=== PATIENT | male | born 1945 | race Caucasian/White ===

== ENCOUNTER 2017-05-27 08:48 | Inpatient (IN) | payer MEDICARE, OTHER ==
[2017-05-27] MEDS ORDERED: Albuterol/Ipratropium 3.0-0.5 MG/3 ML Neb Soln NEB ONE ×2 (09:18→09:49)
[2017-05-27] MEDS ORDERED: methylPREDNISolone Sodium Succinate 125 MG/2 ML SDV IVPUSH ONE (09:49)
[2017-05-27] MEDS ORDERED: Furosemide 20 MG/2 ML VIAL IVPUSH ONE (09:50)
[2017-05-27] MEDS: Sodium Chloride 0.9% 10 ML Syringe FLUSH PRN (09:58)
[2017-05-27] MEDS ORDERED: Insulin Regular, Human 100 Units/ML 3 ML Vial SUBCUT ONE ×2 (10:00→20:10)
[2017-05-27] MEDS ORDERED: Sodium Chloride 0.9% 1,000 ML IV ONE (10:02)
--- NOTE | 2017-05-27 10:03 | EDM.PDOC ---
ED HPI GENERAL MEDICAL PROBLEM - General Chief Complaint: Respiratory Problem Stated Complaint: Hypoxia, SOB Time Seen by Provider: 05/27/17 09:25 Source of Information: Reports: [facility] History Limitations: Reports: No Limitations - History of Present Illness INITIAL COMMENTS - FREE TEXT/NARRATIVE: Patient comes in with complaint of shortness of breath, present for approximately three days. He denies any other problems, including pain, fever, cough. Shortness of breath seems worse in the morning but is present all day and limits patient's walking and activities. He denies having similar SOB in past. He is a smoker, but has not smoked since yesterday due to the SOB. [facility] Sats 69[facility]. Sats increased to 93% on O[facility] - Related Data Allergies Allergy/AdvReac Type Severity Reaction Status Date / Time No Known Allergies Allergy Verified 05/27/17 08:58 Home Meds: Home Meds ARIPiprazole [Abilify] 5 mg PO DAILY@189905/27/17 [History] Acetaminophen [Tylenol] 1 - 2 tab PO Q6HR PRN 05/27/17 [History] Allopurinol [Zyloprim] 100 mg PO BID@05/27/17 [History] Aspirin [Ecotrin] 325 mg PO DAILY 05/27/17 [History] Atenolol 50 mg PO BID@,05/27/17 [History] Budesonide/Formoterol Fumarate [Symbicort 160-4.5 Mcg Inhaler] 2 puff INH BID@05/27/17 [History] Calcium Carbonate [Tums] 300 mg PO DAILY 05/27/17 [History] Cholecalciferol (Vitamin D3) [Vitamin D3] 2,000 unit PO DAILY 05/27/17 [History] Diltiazem HCl [Cardizem Cd] 300 mg PO DAILY 05/27/17 [History] Doxazosin Mesylate [Cardura] 8 mg PO DAILY@0 05/27/17 [History] Flaxseed Oil [Flax Oil] 1,000 mg PO BID@08,05/27/17 [History] Hydrochlorothiazide 25 mg PO DAILY 05/27/17 [History] LORazepam 0.25 mg PO DAILY PRN 05/27/17 [History] Lisinopril 10 mg PO BID@08,19 05/27/17 [History] Multivitamin with Minerals [Ary-U-Ldwg-Minerals] 1 tab PO DAILY 05/27/17 [ History] [place]-3/DHA/Epa/Fish Oil [Fish Oil 1,000 mg Softgel] 1 cap PO BID@08,20 [History] Omeprazole 20 mg PO BID@08,19 05/27/17 [History] Simvastatin [Zocor] 40 mg PO DAILY@1900 05/27/17 [History] Venlafaxine [Effexor XR 24 Hr] 75 mg PO DAILY 05/27/17 [History] glipiZIDE [Glucotrol] 10 mg PO BID@08,16 05/27/17 [History] hydrALAZINE [Apresoline] 50 mg PO BID@,05/27/17 [History] Past Medical History HEENT History: Reports: Cataract, Macular Degeneration, Other (See Below) (dry eye syndrome, hypertensive retinopathy) Cardiovascular History: Reports: High Cholesterol, Hypertension, PVD, Other ( See Below) (Carotid artery stenosis) Respiratory History: Reports: COPD Gastrointestinal History: Reports: GERD Genitourinary History: Reports: Chronic Renal Insuffiency Musculoskeletal History: Reports: Other (See Below) (generalized muscle weakness , leg pain) Psychiatric History: Reports: Addiction (ETOH), Depression, Other (See Below) ( Personality disorder) Endocrine/Metabolic History: Reports: Diabetes, Type II, Vitamin D Deficiency Social & Family History - Family History Family Medical History: Noncontributory (Patient says that father due to accident. Mother from cancer but could not recall what kind of cancer.) - Tobacco Use Smoking Status *Q: Current Every Day Smoker Smoking Cessation Information Provided To Patient: Patient Refused - Alcohol Use Alcohol Use History: Yes Alcohol Use in Last Twelve Months: No Alcohol Use Comment: Previous ETOH use/dependence - Recreational Drug Use Recreational Drug Use: No Drug Use in Last 12 Months: No ED ROS GENERAL - Review of Systems Review Of Systems: See Below Constitutional: Reports: No Symptoms HEENT: Reports: Glasses. Denies: Sinus Problem, Vertigo, Vision Change Respiratory: Reports: Shortness of Breath, Wheezing. Denies: Pleuritic Chest Pain, Cough, Sputum, Hemoptysis Cardiovascular: Reports: Dyspnea on Exertion. Denies: Chest Pain, Edema, Lightheadedness, Orthopnea, Palpitations, PND, Syncope Endocrine: Reports: No Symptoms GI/Abdominal: Reports: No Symptoms : Reports: No Symptoms Musculoskeletal: Reports: No Symptoms (no acute changes from baseline) Skin: Reports: No Symptoms Neurological: Reports: No Symptoms (no acute changes from baseline) Psychiatric: Reports: No Symptoms (No acute changes) Hematologic/Lymphatic: Reports: No Symptoms ED EXAM, GENERAL - Physical Exam Exam: See Below Exam Limited By: No Limitations General Appearance: Alert, WD/WN, No Apparent Distress Eye Exam: Bilateral Eye: EOMI, PERRL Ears: Normal External Exam Nose: Normal Inspection Throat/Mouth: Normal Inspection, Normal Lips, Normal Voice, No Airway Compromise Head: Atraumatic, Normocephalic Neck: Normal Inspection, Supple, Non-Tender, Full Range of Motion. No: Lymphadenopathy (L), Lymphadenopathy (R) Respiratory/Chest: No Respiratory Distress, Decreased Breath Sounds (throughout) , Wheezing (scattered), Accessory Muscle Use. No: Chest Non-Tender, Stridor, Pleural Rub, Retractions Cardiovascular: Normal Peripheral Pulses, Regular Rate, Rhythm, No Edema, No Murmur Peripheral Pulses: 2+: Radial (L), Radial (R), Dorsalis Pedis (L), Dorsalis Pedis (R) GI/Abdominal: Normal Bowel Sounds, Soft, Other (rounded abdomen, patient says this is not unusual for him) (Male) Exam: Deferred Rectal (Males) Exam: Deferred Back Exam: Normal Inspection. No: CVA Tenderness (L), CVA Tenderness (R) Extremities: Normal Inspection, Normal Range of Motion, Non-Tender, No Pedal Edema, Normal Capillary Refill Neurological: Alert, Oriented, Normal Cognition, No Motor/Sensory Deficits, Sensory/Motor Deficit Psychiatric: Normal Affect Skin Exam: Warm, Dry, Intact, Normal Color EKG INTERPRETATION EKG Date: 05/27/17 Time: 09:12 Rhythm: NSR Rate (Beats/Min): 75 [place]: Normal P-Wave: Present QRS: Normal ST-T: Normal QT: Normal Comparison: NA - No Prior EKG EKG Interpretation Comments: diminished amplitude of T waves all leads. Course - Vital Signs Last Recorded V/S: Last Vital Signs Temp 37.1 C 05/27/17 14:16 Pulse 70 05/27/17 14:16 Resp 26 H 05/27/17 14:16 BP 151/68 H 05/27/17 14:16 Pulse Ox 90 L 05/27/17 14:16 - Orders/Labs/Meds Orders: Active Orders 24 hr Category Date Time Status Blood Glucose Check, Bedside [RC] ONETIME Care 05/27/17 12:51 Active Cardiac Monitoring [RC] . DIRECTED Care 05/27/17 09:00 Active EKG Documentation Completion [RC] ASDIRECTED Care 05/27/17 08:58 Active RT Aerosol Therapy [RC] ASDIRECTED Care 05/27/17 09:18 Active RT Aerosol Therapy [RC] ASDIRECTED Care 05/27/17 09:50 Active Chest 2V [CR] Stat Exams 05/27/17 09:00 Taken PE Chest [Ang Chest] [CT] Stat Exams 05/27/17 10:05 Taken Sodium Chloride 0.9% [Normal Saline] 1,000 ml Med 05/27/17 10:02 Active IV ONETIME Sodium Chloride 0.9% [Saline Flush] Med 05/27/17 08:59 Active 10 ml FLUSH ASDIRECTED PRN Saline Lock Insert [OM.PC] Routine Oth 05/27/17 08:59 Ordered Medication Orders Sodium Chloride (Normal Saline) 1,000 mls @ 200 mls/hr IV ONETIME ONE Stop: 05/27/17 15:01 Last Admin: 05/27/17 10:37 Dose: 200 mls/hr Sodium Chloride (Saline Flush) 10 ml FLUSH ASDIRECTED PRN PRN Reason: Keep Vein Open Last Admin: 05/27/17 09:58 Dose: 10 ml Labs: Laboratory Tests 05/27/17 05/27/17 05/27/17 Range/Units 09:10 09:10 09:10 WBC 9.2 (4.0-10.2) K/uL RBC 3.61 L (4.33-5.41) M/uL Hgb 11.5 L (13.1-16.8) g/dL Hct 34.3 L (39.0-49.0) % MCV 95.0 (84.0-98.0) fL MCH 31.9 (28.2-33.3) pg MCHC 33.5 (31.7-36.0) g/dL RDW 14.3 H (11.2-14.1) % Plt Count 125 L (150-350) K/uL Neut % (Auto) 80.0 (45.0-80.0) % Lymph % (Auto) 13.1 (10.0-50.0) % [place] % (Auto) 5.0 (2.0-14.0) % Eos % (Auto) 1.1 (0.0-5.0) % Baso % (Auto) 0.8 (0.0-2.0) % Neut # (Auto) 7.38 H (1.40-7.00) K/uL Lymph # (Auto) 1.21 (0.50-3.50) K/uL [place] # (Auto) 0.46 (0.00-1.00) K/uL Eos # (Auto) 0.10 (0.00-0.50) K/uL Baso # (Auto) 0.07 (0.00-0.20) K/uL D-Dimer, Quantitative 631 H (0-400) ng/mL Sodium 140 (136-145) mmol/L Potassium 3.9 (3.5-5.1) mmol/L Chloride 105 (98-107) mmol/L Carbon Dioxide 24.8 (21.0-32.0) mmol/L BUN 28 H (7-18) mg/dL Creatinine 1.58 H (0.51-1.17) mg/dL Est Cr Clr Drug Dosing 40.09 mL/min Estimated GFR (MDRD) 43 mL/min Glucose 307 H* (74-106) mg/dL POC Glucose (65-110) mg/dl Hemoglobin A1c (4.3-5.7) % Calcium 9.2 (8.5-10.1) mg/dL Total Bilirubin 0.3 (0.2-1.0) mg/dL AST 34 (15-37) U/L ALT 35 (12-78) U/L Alkaline Phosphatase 69 (46-116) IU/L Creatine Kinase 111 (26-308) U/L Creatine Kinase Index 1.1 (0.0-2.5) % CK-MB (CK-2) 1.20 (0.00-3.60) ng/mL Troponin I 0.002 (0.000-0.056) ng/mL NT-Pro-B Natriuret Pep (0-125) pg/mL Total Protein 6.9 (6.4-8.2) g/dL Albumin 3.1 L (3.4-5.0) g/dL 05/27/17 05/27/17 05/27/17 Range/Units 09:10 09:10 12:45 WBC (4.0-10.2) K/uL RBC (4.33-5.41) M/uL Hgb (13.1-16.8) g/dL Hct (39.0-49.0) % MCV (84.0-98.0) fL MCH (28.2-33.3) pg MCHC (31.7-36.0) g/dL RDW (11.2-14.1) % Plt Count (150-350) K/uL Neut % (Auto) (45.0-80.0) % Lymph % (Auto) (10.0-50.0) % [place] % (Auto) (2.0-14.0) % Eos % (Auto) (0.0-5.0) % Baso % (Auto) (0.0-2.0) % Neut # (Auto) (1.40-7.00) K/uL Lymph # (Auto) (0.50-3.50) K/uL [place] # (Auto) (0.00-1.00) K/uL Eos # (Auto) (0.00-0.50) K/uL Baso # (Auto) (0.00-0.20) K/uL D-Dimer, Quantitative (0-400) ng/mL Sodium (136-145) mmol/L Potassium (3.5-5.1) mmol/L Chloride (98-107) mmol/L Carbon Dioxide (21.0-32.0) mmol/L BUN (7-18) mg/dL Creatinine (0.51-1.17) mg/dL Est Cr Clr Drug Dosing mL/min Estimated GFR (MDRD) mL/min Glucose (74-106) mg/dL POC Glucose 168 H (65-110) mg/dl Hemoglobin A1c 7.4 H (4.3-5.7) % Calcium (8.5-10.1) mg/dL Total Bilirubin (0.2-1.0) mg/dL AST (15-37) U/L ALT (12-78) U/L Alkaline Phosphatase (46-116) IU/L Creatine Kinase (26-308) U/L Creatine Kinase Index (0.0-2.5) % CK-MB (CK-2) (0.00-3.60) ng/mL Troponin I (0.000-0.056) ng/mL NT-Pro-B Natriuret Pep 340 H (0-125) pg/mL Total Protein (6.4-8.2) g/dL Albumin (3.4-5.0) g/dL Meds: Medications Generic Name Dose Route Start Last Admin Trade Name Freq PRN Reason Stop Dose Admin Sodium Chloride 1,000 mls @ 200 mls/hr 05/27/17 10:02 05/27/17 10:37 Normal Saline IV 05/27/17 15:01 200 mls/hr ONETIME ONE Administration Sodium Chloride 10 ml 05/27/17 08:59 05/27/17 09:58 Saline Flush FLUSH 10 ml ASDIRECTED PRN Administration Keep Vein Open Discontinued Medications Generic Name Dose Route Start Last Admin Trade Name Freq PRN Reason Stop Dose Admin Albuterol/Ipratropium 3 ml 05/27/17 09:18 05/27/17 09:27 Duoneb 3.0-0.5 Mg/3 Ml NEB 05/27/17 09:19 3 ml ONETIME ONE Administration Albuterol/Ipratropium 3 ml 05/27/17 09:49 05/27/17 09:53 Duoneb 3.0-0.5 Mg/3 Ml NEB 05/27/17 09:50 3 ml ONETIME ONE Administration Furosemide 20 mg 05/27/17 09:50 05/27/17 10:00 Lasix IVPUSH 05/27/17 09:51 20 mg ONETIME ONE Administration Azithromycin 500 mg/ Sodium 250 mls @ 250 mls/hr 05/27/17 12:08 05/27/17 13: 29 Chloride IV 05/27/17 13:07 250 mls/hr ONETIME ONE Administration Ceftriaxone Sodium 1 gm/ 100 mls @ 200 mls/hr 05/27/17 12:04 05/27/17 12:43 Sodium Chloride IV 05/27/17 12:33 200 mls/hr ONETIME ONE Administration Insulin Human Regular 6 unit 05/27/17 10:00 05/27/17 10:03 Humulin R SUBCUT 05/27/17 10:01 6 unit ONETIME ONE Administration Protocol Iopamidol 100 ml 05/27/17 10:30 05/27/17 10:30 Isovue-370 (76%) IVPUSH 05/27/17 10:31 100 ml ONETIME ONE Administration Methylprednisolone Sodium Succinate 125 mg 05/27/17 09:49 05/27/17 09:53 Solu-Medrol IVPUSH 05/27/17 09:50 125 mg ONETIME ONE Administration - Radiology Interpretation Free Text/Narrative:: Chest film and PE study performed. Radiology noted questionable small area left upper lobe that could suggest early pneumonia vs tumor. Suggested f/u study in one month. Also small bilateral pleural effusions. CT Results Date: 05/27/17 CT Results Time: 11:54 - Re-Assessments/Exams Free Text/Narrative Re-Assessment/Exam: 05/27/17 11:23 Patient felt improved after DuoNeb. Wheezing improved. No acute ST changes noted on EKG. Troponin unremarkable. Blood sugar over 300. Insulin SQ given. Mild elevation BNP. DDimer + PE study ordered. Free Text/Narrative Re-Assessment/Exam: 05/27/17 12:12 CT results obtained. No pulmonary emboli identified. No obvious pneumonia but as above, questionable small change left upper lobe that could indicate early pneumonia or other process. Call placed to [place] [facility] to see if they wish to have patient transferred to their facility for care. Otherwise plan at this time is to admit patient here for antibiotics, neb treatments for COPD exacerbation and treatment of possible accompanying pneumonia. Zithromax and Rocephin ordered. Free Text/Narrative Re-Assessment/Exam: 05/27/17 14:41 [facility] ([facility] returned call at 1:40pm. No acute beds available at [place]. They will put him on wait list and may be able to take him over the weekend if a spot opens up. Patient admitted to floor. Departure - Departure Time of Disposition: 14:00 Disposition: Admitted As Inpatient 66 Clinical Impression: COPD exacerbation Pneumonia, community acquired Qualifiers: Laterality: unspecified laterality Qualified Code(s): J18.9 - Pneumonia, unspecified organism - Discharge Information - Problem List & Annotations (1) COPD exacerbation SNOMED Code(s): 086216273 Code(s): J44.1 - CHRONIC OBSTRUCTIVE PULMONARY DISEASE W (ACUTE) EXACERBATION Status: Chronic Priority: High Current Visit: Yes Onset Date: ~05/24/17 Annotation/Comment:: Increased SOB for last three days. Room air O2 sats at [facility] home in high 60s this morning. Patient does not normally require O2 and only has required one inhaler for routine control of COPD. Possible contribution from early pneumonia based on CT results. Will receive nebulizer treatments and supplemental O2. Solu-medrol. (2) Pneumonia, community acquired SNOMED Code(s): 384070559 Code(s): J18.9 - PNEUMONIA, UNSPECIFIED ORGANISM Status: Acute Priority: High Current Visit: Yes Onset Date: ~05/24/17 Annotation/Comment:: CT showed small area left upper lobe that was questionable for early pneumonia vs other process. Radiology recommends follow up study in one month. Patient has no complaint of cough, pain, or fever. Zithromax and Rocephin coverage initiated in ER. Qualifiers: Laterality: unspecified laterality (3) DM type 2 (diabetes mellitus, type 2) SNOMED Code(s): 06491889 Code(s): E11.9 - TYPE 2 DIABETES MELLITUS WITHOUT COMPLICATIONS Status: Chronic Priority: Medium Current Visit: Yes Annotation/Comment:: Elevated blood glucose noted in ER. SQ insulin given. Patient does not normally require insulin. Will initiate sliding scale coverage while inpatient and continue to monitor. Qualifiers: Diabetes mellitus complication status: with hyperglycemia (4) Chronic renal insufficiency SNOMED Code(s): 608589319 Code(s): N18.9 - CHRONIC KIDNEY DISEASE, UNSPECIFIED Status: Chronic Priority: Low Current Visit: Yes Qualifiers: Chronic kidney disease stage: unspecified stage Qualified Code(s): N18.9 - Chronic kidney disease, unspecified (5) Essential hypertension SNOMED Code(s): 90094156 Code(s): I10 - ESSENTIAL (PRIMARY) HYPERTENSION Status: Chronic Priority : Low Current Visit: Yes (6) Dyslipidemia SNOMED Code(s): 856686655 Code(s): E78.5 - HYPERLIPIDEMIA, UNSPECIFIED Status: Chronic Current Visit: No (7) Macular degeneration SNOMED Code(s): 954382219 Code(s): H35.30 - UNSPECIFIED MACULAR DEGENERATION Status: Chronic Current Visit: No (8) Dry eye syndrome of lacrimal gland SNOMED Code(s): 92959371 Code(s): H04.129 - DRY EYE SYNDROME OF UNSPECIFIED LACRIMAL GLAND Status: Chronic Current Visit: No (9) PVD (peripheral vascular disease) SNOMED Code(s): 757515703 Code(s): I73.9 - PERIPHERAL VASCULAR DISEASE, UNSPECIFIED Status: Chronic Current Visit: No (10) GERD (gastroesophageal reflux disease) SNOMED Code(s): 241936540 Code(s): K21.9 - GASTRO-ESOPHAGEAL REFLUX DISEASE WITHOUT ESOPHAGITIS Status: Chronic Current Visit: No Qualifiers: Esophagitis presence: esophagitis presence not specified Qualified Code(s) : K21.9 - Gastro-esophageal reflux disease without esophagitis (11) Depression SNOMED Code(s): 24829710 Code(s): F32.9 - MAJOR DEPRESSIVE DISORDER, SINGLE EPISODE, UNSPECIFIED Status: Chronic Current Visit: No Qualifiers: Depression Type: unspecified Qualified Code(s): F32.9 - Major depressive disorder, single episode, unspecified (12) Personality disorder SNOMED Code(s): 45429951 Code(s): F60.9 - PERSONALITY DISORDER, UNSPECIFIED Status: Chronic Current Visit: No - Problem List Review Problem List Initiated/Reviewed/Updated: Yes - My Orders Last 24 Hours: My Active Orders 05/27/17 08:58 EKG Documentation Completion [RC] ASDIRECTED 05/27/17 08:59 Sodium Chloride 0.9% [Saline Flush] 10 ml FLUSH ASDIRECTED PRN Saline Lock Insert [OM.PC] Routine 05/27/17 09:00 Cardiac Monitoring [RC] . DIRECTED Chest 2V [CR] Stat 05/27/17 09:18 RT Aerosol Therapy [RC] ASDIRECTED 05/27/17 09:50 RT Aerosol Therapy [RC] ASDIRECTED 05/27/17 10:02 Sodium Chloride 0.9% [Normal Saline] 1,000 ml IV ONETIME 05/27/17 10:05 PE Chest [Ang Chest] [CT] Stat 05/27/17 12:51 Blood Glucose Check, Bedside [RC] ONETIME - Assessment/Plan Admission H&P: Please use this note as an admission H&P Last 24 Hours: My Active Orders 05/27/17 08:58 EKG Documentation Completion [RC] ASDIRECTED 05/27/17 08:59 Sodium Chloride 0.9% [Saline Flush] 10 ml FLUSH ASDIRECTED PRN Saline Lock Insert [OM.PC] Routine 05/27/17 09:00 Cardiac Monitoring [RC] . DIRECTED Chest 2V [CR] Stat 05/27/17 09:18 RT Aerosol Therapy [RC] ASDIRECTED 05/27/17 09:50 RT Aerosol Therapy [RC] ASDIRECTED 05/27/17 10:02 Sodium Chloride 0.9% [Normal Saline] 1,000 ml IV ONETIME 05/27/17 10:05 PE Chest [Ang Chest] [CT] Stat 05/27/17 12:51 Blood Glucose Check, Bedside [RC] ONETIME Assessment:: As above Plan: As above
[2017-05-27] MEDS ORDERED: Iopamidol 755 Mg/ML 100 ML Bottle IVPUSH ONE (10:30)
[2017-05-27] MEDS ORDERED: cefTRIAXone 1 GM in Sodium Chloride 0.9% 100 ML IV ONE (12:04)
[2017-05-27] MEDS ORDERED: Azithromycin 500 MG in Sodium Chloride 0.9% 250 ML IV ONE (12:08)
[2017-05-27] MEDS ORDERED: Ondansetron 4 MG/2 ML SDV IVPUSH PRN (15:00)
[2017-05-27] MEDS ORDERED: Ondansetron 4 MG Tab.DIS PO PRN (15:00)
[2017-05-27] MEDS ORDERED: Acetaminophen 325 MG Tab PO PRN (15:00)
[2017-05-27] MEDS ORDERED: Bisacodyl 5 MG Tab PO PRN (15:02)
[2017-05-27] MEDS ORDERED: Albuterol 0.083% 2.5 MG/3 ML Neb Soln NEB PRN (15:10)
[2017-05-27] MEDS ORDERED: LORazepam 0.5 MG Tab PO PRN (15:15)
[2017-05-27] MEDS: Albuterol/Ipratropium 3.0-0.5 MG/3 ML Neb Soln NEB SCH ×2 (15:49→19:56)
[2017-05-27] MEDS: glipiZIDE 5 MG Tab PO SCH (15:49)
[2017-05-27] MEDS: Insulin Regular, Human 100 Units/ML 3 ML Vial SUBCUT SCH (17:09)
[2017-05-27] MEDS: hydrALAZINE 50 MG Tab PO SCH (19:56)
[2017-05-27] MEDS: Doxazosin 4 MG Tab PO SCH (19:56)
[2017-05-27] MEDS: Allopurinol 100 MG Tab PO SCH (19:56)
[2017-05-27] MEDS: Atenolol 50 MG Tab PO SCH (19:56)
[2017-05-27] MEDS: ARIPiprazole 10 MG Tab PO SCH (19:56)
[2017-05-27] MEDS: Omeprazole 20 MG Cap.CR PO SCH (19:56)
[2017-05-27] MEDS: Lisinopril 10 MG Tab PO SCH (19:57)
[2017-05-27] MEDS: Simvastatin 20 MG Tab PO SCH (19:57)
[2017-05-28] MEDS: Albuterol/Ipratropium 3.0-0.5 MG/3 ML Neb Soln NEB SCH ×4 (06:29→19:39)
[2017-05-28] MEDS: Insulin Regular, Human 100 Units/ML 3 ML Vial SUBCUT SCH ×5 (07:45→20:00)
[2017-05-28] MEDS: Diltiazem 180 MG Cap.CD PO SCH (07:47)
[2017-05-28] MEDS: Allopurinol 100 MG Tab PO SCH ×2 (07:47→19:43)
[2017-05-28] MEDS: Hydrochlorothiazide 25 MG Tab PO SCH (07:47)
[2017-05-28] MEDS: glipiZIDE 5 MG Tab PO SCH ×2 (07:47→16:59)
[2017-05-28] MEDS: Diltiazem 120 MG Cap.CD PO SCH (07:48)
[2017-05-28] MEDS: hydrALAZINE 50 MG Tab PO SCH ×2 (07:50→19:43)
[2017-05-28] MEDS: Lisinopril 10 MG Tab PO SCH ×2 (07:50→19:43)
[2017-05-28] MEDS: Atenolol 50 MG Tab PO SCH ×2 (07:50→19:46)
[2017-05-28] MEDS: Omeprazole 20 MG Cap.CR PO SCH ×2 (07:50→19:43)
[2017-05-28] MEDS: Venlafaxine 75 MG Cap.ER PO SCH (07:50)
[2017-05-28] MEDS: Aspirin 325 MG Tab.EC PO SCH (07:50)
[2017-05-28] MEDS ORDERED: DILTIAZEM HCL 300 MG PO SCH (08:00)
--- NOTE | 2017-05-28 09:32 | PCM.PN ---
- General Info Date of Service: 05/28/17 Admission Dx/Problem (Free Text): Shortness of breath, COPD exacerbation, hyperglycemia, suspected pneumonia. Subjective Update: Patient feels improved. Still has some SOB when ambulating to bathroom. No new complaints. Functional Status: Reports: Pain Controlled, Tolerating Diet, Ambulating, Urinating. Denies: New Symptoms - Review of Systems General: Reports: No Symptoms HEENT: Reports: Glasses Pulmonary: Reports: Shortness of Breath. Denies: Pleuritic Chest Pain, Cough, Sputum, Hemoptysis, Wheezing Cardiovascular: Reports: No Symptoms Gastrointestinal: Reports: No Symptoms Genitourinary: Reports: No Symptoms Musculoskeletal: Reports: No Symptoms Skin: Reports: No Symptoms Neurological: Reports: No Symptoms Psychiatric: Reports: No Symptoms - Patient Data Vitals - Most Recent: Last Vital Signs Temp 36.6 C 05/28/17 08:00 Pulse 70 05/28/17 08:00 Resp 17 05/28/17 08:00 BP 189/80 H 05/28/17 08:00 Pulse Ox 95 05/28/17 08:00 Weight - Most Recent: 89.993 kg I&O - Last 24 Hours: Intake & Output 05/27/17 05/28/17 05/28/17 22:59 06:59 14:59 Output Total 200 Balance -200 Lab Results Last 24 Hours: Laboratory Results - last 24 hr 05/27/17 05/27/17 05/27/17 Range/Units 15:43 17:08 19:55 POC Glucose 273 H* 335 H* (65-110) mg/dl Specimen Type Urincc Urine Color Yellow Urine Appearance Clear Urine pH 5.0 (5.0-9.0) Ur Specific Powers 1.020 (1.005-1.030) Urine Protein >=300 H (NEGATIVE) mg/dL Urine Glucose (UA) Negative (NEGATIVE) mg/dL Urine Ketones Negative (NEGATIVE) mg/dL Urine Occult Blood Negative (NEGATIVE) Urine Nitrite Negative (NEGATIVE) Urine Bilirubin Negative (NEGATIVE) Urine Urobilinogen 0.2 (0.2-1.0) E.U./dL Ur Leukocyte Esterase Negative (NEGATIVE) Urine RBC 0-5 /HPF Urine WBC 0-5 /HPF Ur Epithelial Cells Few /LPF Urine Bacteria Rare (NONE TO FEW) /HPF Urine Mucus Few H (NEGATIVE) /LPF 10/28/17 Range/Units 07:44 POC Glucose 176 H (65-110) mg/dl Specimen Type Urine Color Urine Appearance Urine pH (5.0-9.0) Ur Specific Powers (1.005-1.030) Urine Protein (NEGATIVE) mg/dL Urine Glucose (UA) (NEGATIVE) mg/dL Urine Ketones (NEGATIVE) mg/dL Urine Occult Blood (NEGATIVE) Urine Nitrite (NEGATIVE) Urine Bilirubin (NEGATIVE) Urine Urobilinogen (0.2-1.0) E.U./dL Ur Leukocyte Esterase (NEGATIVE) Urine RBC /HPF Urine WBC /HPF Ur Epithelial Cells /LPF Urine Bacteria (NONE TO FEW) /HPF Urine Mucus (NEGATIVE) /LPF Med Orders - Current: Current Medications Acetaminophen (Tylenol) 650 mg PO Q4H PRN PRN Reason: Pain (Mild 1-3)/fever Albuterol (Proventil Neb Soln) 2.5 mg NEB Q4HRRT PRN PRN Reason: Shortness of Breath Albuterol/Ipratropium (Duoneb 3.0-0.5 Mg/3 Ml) 3 ml NEB Q6HRRT [facility] Last Admin: 05/28/17 07:51 Dose: 3 ml Allopurinol (Zyloprim) 100 mg PO BID@ [facility] Last Admin: 05/28/17 07:47 Dose: 100 mg Aripiprazole (Abilify) 5 mg PO DAILY@1900 [facility] Last Admin: 05/27/17 19:56 Dose: 5 mg Aspirin (Ecotrin) 325 mg PO DAILY [facility] Last Admin: 05/28/17 07:50 Dose: 325 mg Atenolol (Tenormin) 50 mg PO BID@ [facility] Last Admin: 05/28/17 07:50 Dose: 50 mg Bisacodyl (Dulcolax) 5 mg PO DAILY PRN PRN Reason: Constipation Coenzyme Q10 (Coenzyme Q10) 100 mg PO DAILY [facility] Last Admin: 05/28/17 07:50 Dose: 100 mg Diltiazem HCl (Cardizem Cd) 120 mg PO DAILY [facility] Last Admin: 05/28/17 07:48 Dose: 120 mg Diltiazem HCl (Cardizem Cd) 180 mg PO DAILY [facility] Last Admin: 05/28/17 07:47 Dose: 180 mg Doxazosin Mesylate (Cardura) 8 mg PO DAILY@1900 [facility] Last Admin: 05/27/17 19:56 Dose: 8 mg Glipizide (Glucotrol) 10 mg PO BID@,16 [facility] Last Admin: 05/28/17 07:47 Dose: 10 mg Hydralazine HCl (Apresoline) 50 mg PO BID@,19 [facility] Last Admin: 05/28/17 07:50 Dose: 50 mg Hydrochlorothiazide (Hydrochlorothiazide) 25 mg PO DAILY [facility] Last Admin: 05/28/17 07:47 Dose: 25 mg Azithromycin 500 mg/ Sodium (Chloride) 250 mls @ 250 mls/hr IV Q24H [facility] Ceftriaxone Sodium 1 gm/ (Sodium Chloride) 100 mls @ 200 mls/hr IV Q24H [facility] Insulin Human Regular (Humulin R) 0 unit SUBCUT TIDAC [facility] PRN Reason: Protocol Last Admin: 05/28/17 07:45 Dose: 2 unit Lisinopril (Prinivil) 10 mg PO BID@ [facility] Last Admin: 05/28/17 07:50 Dose: 10 mg Lorazepam (Ativan) 0.25 mg PO DAILY PRN PRN Reason: Anxiety Omeprazole (Omeprazole) 20 mg PO BID@ [facility] Last Admin: 05/28/17 07:50 Dose: 20 mg Ondansetron HCl (Zofran Odt) 4 mg PO Q6H PRN PRN Reason: Nausea/Vomiting Ondansetron HCl (Zofran) 4 mg IVPUSH Q6H PRN PRN Reason: Nausea/Vomiting Simvastatin (Zocor) 40 mg PO DAILY@1900 [facility] Last Admin: 05/27/17 19:57 Dose: 40 mg Sodium Chloride (Saline Flush) 10 ml FLUSH ASDIRECTED PRN PRN Reason: Keep Vein Open Last Admin: 05/27/17 09:58 Dose: 10 ml Venlafaxine HCl (Effexor Xr) 75 mg PO DAILY [facility] Last Admin: 05/28/17 07:50 Dose: 75 mg Discontinued Medications Albuterol/Ipratropium (Duoneb 3.0-0.5 Mg/3 Ml) 3 ml NEB ONETIME ONE Stop: 05/27/17 09:19 Last Admin: 05/27/17 09:27 Dose: 3 ml Albuterol/Ipratropium (Duoneb 3.0-0.5 Mg/3 Ml) 3 ml NEB ONETIME ONE Stop: 05/27/17 09:50 Last Admin: 05/27/17 09:53 Dose: 3 ml Furosemide (Lasix) 20 mg IVPUSH ONETIME ONE Stop: 05/27/17 09:51 Last Admin: 05/27/17 10:00 Dose: 20 mg Sodium Chloride (Normal Saline) 1,000 mls @ 200 mls/hr IV ONETIME ONE Stop: 05/27/17 15:01 Last Admin: 05/27/17 10:37 Dose: 200 mls/hr Azithromycin 500 mg/ Sodium (Chloride) 250 mls @ 250 mls/hr IV ONETIME ONE Stop: 05/27/17 13:07 Last Admin: 05/27/17 13:29 Dose: 250 mls/hr Ceftriaxone Sodium 1 gm/ (Sodium Chloride) 100 mls @ 200 mls/hr IV ONETIME ONE Stop: 05/27/17 12:33 Last Admin: 05/27/17 12:43 Dose: 200 mls/hr Insulin Human Regular (Humulin R) 6 unit SUBCUT ONETIME ONE PRN Reason: Protocol Stop: 05/27/17 10:01 Last Admin: 05/27/17 10:03 Dose: 6 unit Insulin Human Regular (Humulin R) 8 unit SUBCUT ONETIME ONE PRN Reason: Protocol Stop: 05/27/17 20:11 Last Admin: 05/27/17 21:43 Dose: 8 units Iopamidol (Isovue-370 (76%)) 100 ml IVPUSH ONETIME ONE Stop: 05/27/17 10:31 Last Admin: 05/27/17 10:30 Dose: 100 ml Methylprednisolone Sodium Succinate (Solu-Medrol) 125 mg IVPUSH ONETIME ONE Stop: 05/27/17 09:50 Last Admin: 05/27/17 09:53 Dose: 125 mg - Exam Quality Assessment: Supplemental Oxygen, DVT Prophylaxis General: Alert, Oriented, Cooperative, No Acute Distress HEENT: Pupils Equal, Pupils Reactive, EOMI, Mucous Membr. Moist/[place] Neck: Supple, Trachea Midline. No: Lymphadenopathy Lungs: Clear to Auscultation, Normal Respiratory Effort, Decreased Breath Sounds (throughout). No: Crackles, Rales, Rhonchi, Rub, Stridor, Wheezing Cardiovascular: Regular Rate, Regular Rhythm, No Murmurs GI/Abdominal Exam: Normal Bowel Sounds, Soft, Non-Tender, No Distention (Male) Exam: Deferred Back Exam: No: CVA Tenderness (L), CVA Tenderness (R) Extremities: Normal Inspection, Non-Tender, No Pedal Edema, Normal Capillary Refill Peripheral Pulses: 2+: Radial (L), Radial (R) Skin: Warm, Dry Neurological: No New Focal Deficit Psy/Mental Status: Alert, Normal Affect, Normal Mood - Problem List & Annotations (1) COPD exacerbation SNOMED Code(s): 180997041 Code(s): J44.1 - CHRONIC OBSTRUCTIVE PULMONARY DISEASE W (ACUTE) EXACERBATION Status: Chronic Priority: High Current Visit: Yes Onset Date: ~05/24/17 Annotation/Comment:: Improving. Down to 3L O2 via NC. O2 sats in upper 90s. (2) Pneumonia, community acquired SNOMED Code(s): 242232490 Code(s): J18.9 - PNEUMONIA, UNSPECIFIED ORGANISM Status: Acute Priority: High Current Visit: Yes Onset Date: ~05/24/17 Qualifiers: Laterality: unspecified laterality Qualified Code(s): J18.9 - Pneumonia, unspecified organism Annotation/Comment:: CT showed small area left upper lobe that was questionable for early pneumonia vs other process. Radiology recommends follow up study in one month. Patient has no complaint of cough, pain, or fever. Zithromax and Rocephin coverage initiated in ER. (3) DM type 2 (diabetes mellitus, type 2) SNOMED Code(s): 20181381 Code(s): E11.9 - TYPE 2 DIABETES MELLITUS WITHOUT COMPLICATIONS Status: Chronic Priority: Medium Current Visit: Yes Qualifiers: Diabetes mellitus complication status: with hyperglycemia Annotation/Comment:: Elevated blood glucose noted in ER. SQ insulin given. Patient does not normally require insulin. Will initiate sliding scale coverage while inpatient and continue to monitor. (4) Chronic renal insufficiency SNOMED Code(s): 964546937 Code(s): N18.9 - CHRONIC KIDNEY DISEASE, UNSPECIFIED Status: Chronic Priority: Low Current Visit: Yes Qualifiers: Chronic kidney disease stage: unspecified stage Qualified Code(s): N18.9 - Chronic kidney disease, unspecified (5) Essential hypertension SNOMED Code(s): 54669777 Code(s): I10 - ESSENTIAL (PRIMARY) HYPERTENSION Status: Chronic Priority : Low Current Visit: Yes Annotation/Comment:: Has persistently elevated systolic BPs. Continuing to monitor closely. Patient denies headaches/vision change. (6) Dyslipidemia SNOMED Code(s): 853714559 Code(s): E78.5 - HYPERLIPIDEMIA, UNSPECIFIED Status: Chronic Current Visit: No (7) Macular degeneration SNOMED Code(s): 601156754 Code(s): H35.30 - UNSPECIFIED MACULAR DEGENERATION Status: Chronic Current Visit: No (8) Dry eye syndrome of lacrimal gland SNOMED Code(s): 39981446 Code(s): H04.129 - DRY EYE SYNDROME OF UNSPECIFIED LACRIMAL GLAND Status: Chronic Current Visit: No (9) PVD (peripheral vascular disease) SNOMED Code(s): 082198955 Code(s): I73.9 - PERIPHERAL VASCULAR DISEASE, UNSPECIFIED Status: Chronic Current Visit: No (10) GERD (gastroesophageal reflux disease) SNOMED Code(s): 335532188 Code(s): K21.9 - GASTRO-ESOPHAGEAL REFLUX DISEASE WITHOUT ESOPHAGITIS Status: Chronic Current Visit: No Qualifiers: Esophagitis presence: esophagitis presence not specified Qualified Code(s) : K21.9 - Gastro-esophageal reflux disease without esophagitis (11) Depression SNOMED Code(s): 01224630 Code(s): F32.9 - MAJOR DEPRESSIVE DISORDER, SINGLE EPISODE, UNSPECIFIED Status: Chronic Current Visit: No Qualifiers: Depression Type: unspecified Qualified Code(s): F32.9 - Major depressive disorder, single episode, unspecified (12) Personality disorder SNOMED Code(s): 92743958 Code(s): F60.9 - PERSONALITY DISORDER, UNSPECIFIED Status: Chronic Current Visit: No - Problem List Review Problem List Initiated/Reviewed/Updated: Yes - My Orders Last 24 Hours: My Active Orders 05/27/17 15:00 Acetaminophen [Tylenol] 650 mg PO Q4H PRN Ondansetron [Zofran ODT] 4 mg PO Q6H PRN Ondansetron [Zofran] 4 mg IVPUSH Q6H PRN 05/27/17 15:02 Patient Status [ADT] Routine Blood Glucose Check, Bedside [RC] QIDACANDBED Height and Weight [RC] .PRN Oxygen Therapy [RC] 2300 Up With Assistance [RC] DAILY VTE/DVT Education [RC] PER UNIT ROUTINE Vital Signs [RC] Q4HR Bisacodyl [Dulcolax] 5 mg PO DAILY PRN VTE Pharmacological Contraindications [AST] Per Unit Routine Resuscitation Status Routine 05/27/17 15:04 Intake and Output [RC] QSHIFT Pulse Oximetry [RC] .PRN 05/27/17 15:05 Antiembolic Hose [OM.PC] Per Unit Routine 05/27/17 15:07 Antiembolic Devices [RC] PER UNIT ROUTINE 05/27/17 15:10 RT Aerosol Therapy [RC] 08,14,20,00 Albuterol [Proventil Neb Soln] 2.5 mg NEB Q4HRRT PRN 05/27/17 15:15 Albuterol/Ipratropium [DuoNeb 3.0-0.5 MG/3 ML] 3 ml NEB Q6HRRT LORazepam [Ativan] 0.25 mg PO DAILY PRN 05/27/17 16:00 glipiZIDE [Glucotrol] 10 mg PO BID@08,16 05/27/17 17:30 Insulin Regular, Human [HumuLIN R] See Protocol SUBCUT TIDAC 05/27/17 19:00 ARIPiprazole [Abilify] 5 mg PO DAILY@1900 Allopurinol [Zyloprim] 100 mg PO BID@, Atenolol [Tenormin] 50 mg PO BID@, Doxazosin [Cardura] 8 mg PO DAILY@1900 Lisinopril [Prinivil] 10 mg PO BID@, Omeprazole 20 mg PO BID@, Simvastatin [Zocor] 40 mg PO DAILY@1900 hydrALAZINE [Apresoline] 50 mg PO BID@,05/27/17 Dinner [place] Diet [DIET] 05/28/17 08:00 Aspirin [Ecotrin] 325 mg PO DAILY Diltiazem [Cardizem CD] 120 mg PO DAILY Diltiazem [Cardizem CD] 180 mg PO DAILY Hydrochlorothiazide 25 mg PO DAILY Ubidecarenone [Coenzyme Q10] 100 mg PO DAILY Venlafaxine [Effexor XR] 75 mg PO DAILY 05/28/17 13:00 cefTRIAXone [Rocephin] 1 gm Sodium Chloride 0.9% [Normal Saline] 100 ml IV Q24H 05/28/17 14:00 Azithromycin [Zithromax] 500 mg Sodium Chloride 0.9% [Normal Saline] 250 ml IV Q24H 05/29/17 05:11 COMPREHENSIVE METABOLIC PN,CMP [CHEM] AM 05/29/17 05:15 CBC WITH AUTO DIFF [HEME] AM - Plan Plan:: Continue IV antibiotics and nebulizer treatments. Continue to observe O2 sats and BP. Anticipate 3 more days of inpatient care. Repeat labs tomorrow. Repeat chest xray Tuesday morning. PT/OT evaluation Tuesday.
[2017-05-28] MEDS: Sodium Chloride 0.9% 10 ML Syringe FLUSH PRN ×4 (13:54→19:43)
[2017-05-28] MEDS: cefTRIAXone 1 GM in Sodium Chloride 0.9% 100 ML IV SCH (13:54)
[2017-05-28] MEDS: Azithromycin 500 MG in Sodium Chloride 0.9% 250 ML IV SCH (14:31)
[2017-05-28] MEDS ORDERED: methylPREDNISolone Sodium Succinate 125 MG/2 ML SDV IVPUSH ONE (17:43)
[2017-05-28] MEDS ORDERED: Lisinopril 5 MG Tab PO ONE (17:46)
[2017-05-28] MEDS ORDERED: Atenolol 25 MG Tab PO ONE (17:47)
[2017-05-28] MEDS: Doxazosin 4 MG Tab PO SCH (19:42)
[2017-05-28] MEDS: Simvastatin 20 MG Tab PO SCH (19:43)
[2017-05-28] MEDS: ARIPiprazole 10 MG Tab PO SCH (19:43)
[2017-05-29] MEDS: Albuterol/Ipratropium 3.0-0.5 MG/3 ML Neb Soln NEB SCH ×4 (02:44→19:26)
[2017-05-29] MEDS: Venlafaxine 75 MG Cap.ER PO SCH (07:38)
[2017-05-29] MEDS: Diltiazem 180 MG Cap.CD PO SCH (07:38)
[2017-05-29] MEDS: Omeprazole 20 MG Cap.CR PO SCH ×2 (07:38→19:25)
[2017-05-29] MEDS: Aspirin 325 MG Tab.EC PO SCH (07:38)
[2017-05-29] MEDS: glipiZIDE 5 MG Tab PO SCH ×2 (07:39→16:27)
[2017-05-29] MEDS: Diltiazem 120 MG Cap.CD PO SCH (07:39)
[2017-05-29] MEDS: Insulin Regular, Human 100 Units/ML 3 ML Vial SUBCUT SCH ×4 (07:40→19:59)
[2017-05-29] MEDS: Hydrochlorothiazide 25 MG Tab PO SCH (07:40)
[2017-05-29] MEDS: hydrALAZINE 50 MG Tab PO SCH ×2 (07:40→19:25)
[2017-05-29] MEDS: Allopurinol 100 MG Tab PO SCH ×2 (07:40→19:25)
[2017-05-29] MEDS: Atenolol 50 MG Tab PO SCH ×2 (07:40→19:25)
[2017-05-29] MEDS: Lisinopril 10 MG Tab PO SCH ×2 (07:45→19:25)
[2017-05-29] MEDS: cefTRIAXone 1 GM in Sodium Chloride 0.9% 100 ML IV SCH (13:30)
[2017-05-29] MEDS: Sodium Chloride 0.9% 10 ML Syringe FLUSH PRN ×3 (13:30→23:38)
[2017-05-29] MEDS: Azithromycin 500 MG in Sodium Chloride 0.9% 250 ML IV SCH (14:17)
[2017-05-29] MEDS ORDERED: Metoprolol Tartrate 50 MG Tab PO ONE (16:04)
[2017-05-29] MEDS ORDERED: Lisinopril 10 MG Tab PO ONE (16:06)
[2017-05-29] MEDS ORDERED: methylPREDNISolone Sodium Succinate 125 MG/2 ML SDV IVPUSH ONE (18:30)
--- NOTE | 2017-05-29 18:35 | PCM.PN ---
- General Info Date of Service: 05/29/17 Admission Dx/Problem (Free Text): Shortness of breath, COPD exacerbation, hyperglycemia, suspected pneumonia. Subjective Update: Patient feels improved. Still has some SOB when ambulating to bathroom. No new complaints. Feels better today than yesterday. Able to ambulate with assistance down emmanuel. Functional Status: Reports: Pain Controlled, Tolerating Diet, Ambulating, Urinating, Incentive Spirometry. Denies: New Symptoms - Review of Systems General: Denies: Fever, Weakness, Malaise, Chills, Night Sweats HEENT: Reports: Glasses Pulmonary: Reports: Shortness of Breath, Wheezing. Denies: Pleuritic Chest Pain , Cough, Sputum, Hemoptysis Cardiovascular: Reports: Dyspnea on Exertion. Denies: Chest Pain, Palpitations , Lightheadedness Gastrointestinal: Reports: No Symptoms Genitourinary: Reports: No Symptoms Musculoskeletal: Reports: No Symptoms Skin: Reports: No Symptoms Neurological: Reports: No Symptoms Psychiatric: Reports: No Symptoms - Patient Data Vitals - Most Recent: Last Vital Signs Temp 36.6 C 05/29/17 15:37 Pulse 70 05/29/17 16:26 Resp 20 05/29/17 12:00 BP 195/78 H 05/29/17 16:26 Pulse Ox 96 05/29/17 15:37 Weight - Most Recent: 89.993 kg I&O - Last 24 Hours: Intake & Output 05/29/17 05/29/17 05/29/17 06:59 14:59 22:59 Intake Total 380 Output Total 600 500 200 Balance -600 -120 -200 Lab Results Last 24 Hours: Laboratory Results - last 24 hr 05/28/17 05/29/17 05/29/17 Range/Units 19:47 07:00 07:00 WBC 10.4 H (4.0-10.2) K/uL RBC 3.59 L (4.33-5.41) M/uL Hgb 11.4 L (13.1-16.8) g/dL Hct 34.0 L (39.0-49.0) % MCV 94.7 (84.0-98.0) fL MCH 31.8 (28.2-33.3) pg MCHC 33.5 (31.7-36.0) g/dL RDW 14.4 H (11.2-14.1) % Plt Count 140 L (150-350) K/uL Neut % (Auto) 90.3 H (45.0-80.0) % Lymph % (Auto) 8.1 L (10.0-50.0) % [place] % (Auto) 1.3 L (2.0-14.0) % Eos % (Auto) 0.0 (0.0-5.0) % Baso % (Auto) 0.3 (0.0-2.0) % Neut # (Auto) 9.41 H (1.40-7.00) K/uL Lymph # (Auto) 0.84 (0.50-3.50) K/uL [place] # (Auto) 0.14 (0.00-1.00) K/uL Eos # (Auto) 0.00 (0.00-0.50) K/uL Baso # (Auto) 0.03 (0.00-0.20) K/uL Sodium 141 (136-145) mmol/L Potassium 4.3 (3.5-5.1) mmol/L Chloride 104 (98-107) mmol/L Carbon Dioxide 25.6 (21.0-32.0) mmol/L BUN 37 H (7-18) mg/dL Creatinine 1.36 H (0.51-1.17) mg/dL Est Cr Clr Drug Dosing 46.46 mL/min Estimated GFR (MDRD) 52 mL/min Glucose 227 H (74-106) mg/dL POC Glucose 194 H (65-110) mg/dl Calcium 9.0 (8.5-10.1) mg/dL Total Bilirubin 0.2 (0.2-1.0) mg/dL AST 25 (15-37) U/L ALT 32 (12-78) U/L Alkaline Phosphatase 61 (46-116) IU/L Total Protein 6.8 (6.4-8.2) g/dL Albumin 3.0 L (3.4-5.0) g/dL 05/29/17 05/29/17 05/29/17 Range/Units 07:38 11:40 17:08 WBC (4.0-10.2) K/uL RBC (4.33-5.41) M/uL Hgb (13.1-16.8) g/dL Hct (39.0-49.0) % MCV (84.0-98.0) fL MCH (28.2-33.3) pg MCHC (31.7-36.0) g/dL RDW (11.2-14.1) % Plt Count (150-350) K/uL Neut % (Auto) (45.0-80.0) % Lymph % (Auto) (10.0-50.0) % [place] % (Auto) (2.0-14.0) % Eos % (Auto) (0.0-5.0) % Baso % (Auto) (0.0-2.0) % Neut # (Auto) (1.40-7.00) K/uL Lymph # (Auto) (0.50-3.50) K/uL [place] # (Auto) (0.00-1.00) K/uL Eos # (Auto) (0.00-0.50) K/uL Baso # (Auto) (0.00-0.20) K/uL Sodium (136-145) mmol/L Potassium (3.5-5.1) mmol/L Chloride (98-107) mmol/L Carbon Dioxide (21.0-32.0) mmol/L BUN (7-18) mg/dL Creatinine (0.51-1.17) mg/dL Est Cr Clr Drug Dosing mL/min Estimated GFR (MDRD) mL/min Glucose (74-106) mg/dL POC Glucose 203 H 219 H 203 H (65-110) mg/dl Calcium (8.5-10.1) mg/dL Total Bilirubin (0.2-1.0) mg/dL AST (15-37) U/L ALT (12-78) U/L Alkaline Phosphatase (46-116) IU/L Total Protein (6.4-8.2) g/dL Albumin (3.4-5.0) g/dL Med Orders - Current: Current Medications Acetaminophen (Tylenol) 650 mg PO Q4H PRN PRN Reason: Pain (Mild 1-3)/fever Albuterol (Proventil Neb Soln) 2.5 mg NEB Q4HRRT PRN PRN Reason: Shortness of Breath Albuterol/Ipratropium (Duoneb 3.0-0.5 Mg/3 Ml) 3 ml NEB Q6HRRT [facility] Last Admin: 05/29/17 14:17 Dose: 3 ml Allopurinol (Zyloprim) 100 mg PO BID@ [facility] Last Admin: 05/29/17 07:40 Dose: 100 mg Aripiprazole (Abilify) 5 mg PO DAILY@1900 [facility] Last Admin: 05/28/17 19:43 Dose: 5 mg Aspirin (Ecotrin) 325 mg PO DAILY [facility] Last Admin: 05/29/17 07:38 Dose: 325 mg Atenolol (Tenormin) 50 mg PO BID@ [facility] Last Admin: 05/29/17 07:40 Dose: 50 mg Bisacodyl (Dulcolax) 5 mg PO DAILY PRN PRN Reason: Constipation Coenzyme Q10 (Coenzyme Q10) 100 mg PO DAILY [facility] Last Admin: 05/29/17 07:40 Dose: 100 mg Diltiazem HCl (Cardizem Cd) 120 mg PO DAILY [facility] Last Admin: 05/29/17 07:39 Dose: 120 mg Diltiazem HCl (Cardizem Cd) 180 mg PO DAILY [facility] Last Admin: 05/29/17 07:38 Dose: 180 mg Doxazosin Mesylate (Cardura) 8 mg PO DAILY@1900 [facility] Last Admin: 05/28/17 19:42 Dose: 8 mg Glipizide (Glucotrol) 10 mg PO BID@,16 [facility] Last Admin: 05/29/17 16:27 Dose: 10 mg Hydralazine HCl (Apresoline) 50 mg PO BID@ [facility] Last Admin: 05/29/17 07:40 Dose: 50 mg Hydrochlorothiazide (Hydrochlorothiazide) 25 mg PO DAILY [facility] Last Admin: 05/29/17 07:40 Dose: 25 mg Azithromycin 500 mg/ Sodium (Chloride) 250 mls @ 250 mls/hr IV Q24H [facility] Last Admin: 05/29/17 14:17 Dose: 250 mls/hr Ceftriaxone Sodium 1 gm/ (Sodium Chloride) 100 mls @ 200 mls/hr IV Q24H [facility] Last Admin: 05/29/17 13:30 Dose: 200 mls/hr Insulin Human Regular (Humulin R) 0 unit SUBCUT QID@0730,1130,17,21 [facility] PRN Reason: Protocol Last Admin: 05/29/17 17:08 Dose: 4 units Lisinopril (Prinivil) 10 mg PO BID@ [facility] Last Admin: 05/29/17 07:45 Dose: 10 mg Lorazepam (Ativan) 0.25 mg PO DAILY PRN PRN Reason: Anxiety Last Admin: 05/28/17 19:44 Dose: 0.25 mg Omeprazole (Omeprazole) 20 mg PO BID@ [facility] Last Admin: 05/29/17 07:38 Dose: 20 mg Ondansetron HCl (Zofran Odt) 4 mg PO Q6H PRN PRN Reason: Nausea/Vomiting Ondansetron HCl (Zofran) 4 mg IVPUSH Q6H PRN PRN Reason: Nausea/Vomiting Simvastatin (Zocor) 40 mg PO DAILY@1900 [facility] Last Admin: 05/28/17 19:43 Dose: 40 mg Sodium Chloride (Saline Flush) 10 ml FLUSH ASDIRECTED PRN PRN Reason: Keep Vein Open Last Admin: 05/29/17 14:17 Dose: 10 ml Venlafaxine HCl (Effexor Xr) 75 mg PO DAILY [facility] Last Admin: 05/29/17 07:38 Dose: 75 mg Discontinued Medications Albuterol/Ipratropium (Duoneb 3.0-0.5 Mg/3 Ml) 3 ml NEB ONETIME ONE Stop: 05/27/17 09:19 Last Admin: 05/27/17 09:27 Dose: 3 ml Albuterol/Ipratropium (Duoneb 3.0-0.5 Mg/3 Ml) 3 ml NEB ONETIME ONE Stop: 05/27/17 09:50 Last Admin: 05/27/17 09:53 Dose: 3 ml Atenolol (Tenormin) 25 mg PO ONETIME ONE Stop: 05/28/17 17:48 Last Admin: 05/28/17 18:29 Dose: 25 mg Furosemide (Lasix) 20 mg IVPUSH ONETIME ONE Stop: 05/27/17 09:51 Last Admin: 05/27/17 10:00 Dose: 20 mg Sodium Chloride (Normal Saline) 1,000 mls @ 200 mls/hr IV ONETIME ONE Stop: 05/27/17 15:01 Last Admin: 05/27/17 10:37 Dose: 200 mls/hr Azithromycin 500 mg/ Sodium (Chloride) 250 mls @ 250 mls/hr IV ONETIME ONE Stop: 05/27/17 13:07 Last Admin: 05/27/17 13:29 Dose: 250 mls/hr Ceftriaxone Sodium 1 gm/ (Sodium Chloride) 100 mls @ 200 mls/hr IV ONETIME ONE Stop: 05/27/17 12:33 Last Admin: 05/27/17 12:43 Dose: 200 mls/hr Insulin Human Regular (Humulin R) 6 unit SUBCUT ONETIME ONE PRN Reason: Protocol Stop: 05/27/17 10:01 Last Admin: 05/27/17 10:03 Dose: 6 unit Insulin Human Regular (Humulin R) 0 unit SUBCUT TIDAC KAL[place] PRN Reason: Protocol Last Admin: 05/28/17 17:01 Dose: 4 unit Insulin Human Regular (Humulin R) 8 unit SUBCUT ONETIME ONE PRN Reason: Protocol Stop: 05/27/17 20:11 Last Admin: 05/27/17 21:43 Dose: 8 units Iopamidol (Isovue-370 (76%)) 100 ml IVPUSH ONETIME ONE Stop: 05/27/17 10:31 Last Admin: 05/27/17 10:30 Dose: 100 ml Lisinopril (Prinivil) 5 mg PO ONETIME ONE Stop: 05/28/17 17:47 Last Admin: 05/28/17 18:29 Dose: 5 mg Lisinopril (Prinivil) 10 mg PO ONETIME ONE Stop: 05/29/17 16:07 Last Admin: 05/29/17 16:27 Dose: 10 mg Methylprednisolone Sodium Succinate (Solu-Medrol) 125 mg IVPUSH ONETIME ONE Stop: 05/27/17 09:50 Last Admin: 05/27/17 09:53 Dose: 125 mg Methylprednisolone Sodium Succinate (Solu-Medrol) 125 mg IVPUSH ONETIME ONE Stop: 05/28/17 17:44 Last Admin: 05/28/17 18:29 Dose: 125 mg Metoprolol Tartrate (Lopressor) 50 mg PO ONETIME ONE Stop: 05/29/17 16:05 Last Admin: 05/29/17 16:26 Dose: 50 mg - Exam Quality Assessment: Supplemental Oxygen General: Alert, Oriented, Cooperative, No Acute Distress HEENT: Pupils Equal, Pupils Reactive, EOMI, Mucous Membr. Moist/[place] Neck: Supple Lungs: Wheezing (throughout, mild. Shallower respirations, unable to take deep breath. ). No: Crackles, Rales, Rhonchi, Rub, Stridor Cardiovascular: Regular Rate, Regular Rhythm, No Murmurs GI/Abdominal Exam: Normal Bowel Sounds, Soft, Non-Tender (Male) Exam: Deferred Back Exam: Normal Inspection Extremities: Normal Inspection, Non-Tender, Normal Capillary Refill Peripheral Pulses: 2+: Radial (L), Radial (R) Skin: Warm, Dry, Intact Neurological: No New Focal Deficit Psy/Mental Status: Alert, Normal Affect, Normal Mood - Problem List & Annotations (1) COPD exacerbation SNOMED Code(s): 457467178 Code(s): J44.1 - CHRONIC OBSTRUCTIVE PULMONARY DISEASE W (ACUTE) EXACERBATION Status: Chronic Priority: High Current Visit: Yes Onset Date: ~05/24/17 Annotation/Comment:: Improving. Down to 3L O2 via NC. O2 sats in upper 90s. Continues to have some wheezing. (2) Pneumonia, community acquired SNOMED Code(s): 083484365 Code(s): J18.9 - PNEUMONIA, UNSPECIFIED ORGANISM Status: Acute Priority: High Current Visit: Yes Onset Date: ~05/24/17 Qualifiers: Laterality: unspecified laterality Qualified Code(s): J18.9 - Pneumonia, unspecified organism Annotation/Comment:: CT showed small 3cm area left upper lobe that was questionable for early pneumonia vs other process. Radiology recommends follow up study in one month. Patient has no complaint of cough, pain, or fever. Zithromax and Rocephin coverage initiated in ER. (3) Pleural effusion, bilateral SNOMED Code(s): 307883163 Code(s): J90 - PLEURAL EFFUSION, NOT ELSEWHERE CLASSIFIED Status: Acute Priority: Low Current Visit: Yes Annotation/Comment:: Small, bilateral (4) DM type 2 (diabetes mellitus, type 2) SNOMED Code(s): 36736245 Code(s): E11.9 - TYPE 2 DIABETES MELLITUS WITHOUT COMPLICATIONS Status: Chronic Priority: Medium Current Visit: Yes Qualifiers: Diabetes mellitus complication status: with hyperglycemia Annotation/Comment:: Elevated blood glucose noted in ER. SQ insulin given. Patient does not normally require insulin. Will initiate sliding scale coverage while inpatient and continue to monitor. (5) Chronic renal insufficiency SNOMED Code(s): 019580969 Code(s): N18.9 - CHRONIC KIDNEY DISEASE, UNSPECIFIED Status: Chronic Priority: Low Current Visit: Yes Qualifiers: Chronic kidney disease stage: unspecified stage Qualified Code(s): N18.9 - Chronic kidney disease, unspecified (6) Essential hypertension SNOMED Code(s): 42769141 Code(s): I10 - ESSENTIAL (PRIMARY) HYPERTENSION Status: Chronic Priority : Low Current Visit: Yes Annotation/Comment:: Has persistently elevated systolic BPs. Continuing to monitor closely. Patient denies headaches/vision change. Additional Metoprolol and Lisinopril given to patient without much improvement noted. (7) Dyslipidemia SNOMED Code(s): 396689084 Code(s): E78.5 - HYPERLIPIDEMIA, UNSPECIFIED Status: Chronic Current Visit: No (8) Macular degeneration SNOMED Code(s): 269406827 Code(s): H35.30 - UNSPECIFIED MACULAR DEGENERATION Status: Chronic Current Visit: No (9) Dry eye syndrome of lacrimal gland SNOMED Code(s): 78568203 Code(s): H04.129 - DRY EYE SYNDROME OF UNSPECIFIED LACRIMAL GLAND Status: Chronic Current Visit: No (10) PVD (peripheral vascular disease) SNOMED Code(s): 309037031 Code(s): I73.9 - PERIPHERAL VASCULAR DISEASE, UNSPECIFIED Status: Chronic Current Visit: No (11) GERD (gastroesophageal reflux disease) SNOMED Code(s): 740279095 Code(s): K21.9 - GASTRO-ESOPHAGEAL REFLUX DISEASE WITHOUT ESOPHAGITIS Status: Chronic Current Visit: No Qualifiers: Esophagitis presence: esophagitis presence not specified Qualified Code(s) : K21.9 - Gastro-esophageal reflux disease without esophagitis (12) Depression SNOMED Code(s): 62312003 Code(s): F32.9 - MAJOR DEPRESSIVE DISORDER, SINGLE EPISODE, UNSPECIFIED Status: Chronic Current Visit: No Qualifiers: Depression Type: unspecified Qualified Code(s): F32.9 - Major depressive disorder, single episode, unspecified (13) Personality disorder SNOMED Code(s): 73201189 Code(s): F60.9 - PERSONALITY DISORDER, UNSPECIFIED Status: Chronic Current Visit: No (14) Thrombocytopenia SNOMED Code(s): 205127919 Code(s): D69.6 - THROMBOCYTOPENIA, UNSPECIFIED Status: Chronic Priority: Low Current Visit: Yes - Problem List Review Problem List Initiated/Reviewed/Updated: Yes - My Orders Last 24 Hours: My Active Orders 05/28/17 21:00 Insulin Regular, Human [HumuLIN R] See Protocol SUBCUT QID@0730,1130,,05/29/17 16:08 OT Evaluation and Treatment [CONS] Routine PT Evaluation and Treatment [CONS] Routine 05/30/17 05:11 Chest 2V [CR] AM - Assessment Assessment:: COPD exacerbation with persistent increased SOB above baseline, improving. Suspected pneumonia, however cannot rule out neoplasm based on CT finding/chest xray when patient first evaluated. Persistent and difficult to treat hypertension. Labs performed today do not show any significant change from those performed at time of admission. Patient does not appear to have any significant component of CHF. Had mild increase of BNP on admission but no significant findings on radiological studies. - Plan Plan:: Continue IV antibiotics and nebulizer treatments. Continue to observe O2 sats and BP. Anticipate 2 more days of inpatient care. May need to consider swing bed depending on how well patient is able to get around and perform ADLs. Repeat chest xray Tuesday morning. PT/OT evaluation Tuesday. Primary provider to take over care of patient in the morning.
[2017-05-29] MEDS ORDERED: Furosemide 20 MG/2 ML VIAL IVPUSH ONE (18:44)
[2017-05-29] MEDS: Doxazosin 4 MG Tab PO SCH (19:23)
[2017-05-29] MEDS: ARIPiprazole 10 MG Tab PO SCH (19:24)
[2017-05-29] MEDS: Simvastatin 20 MG Tab PO SCH (19:24)
[2017-05-29] MEDS ORDERED: Labetalol 20 MG/4 ML Syringe IVPUSH ONE (22:51)
[2017-05-30] MEDS: Albuterol/Ipratropium 3.0-0.5 MG/3 ML Neb Soln NEB SCH ×4 (02:33→19:35)
[2017-05-30] MEDS: Insulin Regular, Human 100 Units/ML 3 ML Vial SUBCUT SCH ×4 (07:55→21:24)
[2017-05-30] MEDS: Venlafaxine 75 MG Cap.ER PO SCH (07:56)
[2017-05-30] MEDS: Lisinopril 10 MG Tab PO SCH ×2 (07:57→19:35)
[2017-05-30] MEDS: Diltiazem 180 MG Cap.CD PO SCH (07:57)
[2017-05-30] MEDS: Hydrochlorothiazide 25 MG Tab PO SCH (07:57)
[2017-05-30] MEDS: Atenolol 50 MG Tab PO SCH ×2 (07:57→19:33)
[2017-05-30] MEDS: hydrALAZINE 50 MG Tab PO SCH ×2 (07:58→19:32)
[2017-05-30] MEDS: Omeprazole 20 MG Cap.CR PO SCH ×2 (07:58→19:33)
[2017-05-30] MEDS: Diltiazem 120 MG Cap.CD PO SCH (07:58)
[2017-05-30] MEDS: Allopurinol 100 MG Tab PO SCH ×2 (07:59→19:33)
[2017-05-30] MEDS: glipiZIDE 5 MG Tab PO SCH ×2 (07:59→15:38)
[2017-05-30] MEDS: Aspirin 325 MG Tab.EC PO SCH (07:59)
--- NOTE | 2017-05-30 08:36 | PCM.SN ---
- Free Text/Narrative Note: Small dose IV Labetolol given last night as patient's BP approached 190 systolic. He had no complaints of headache or neuro changes and stated that he felt well. BP responded well. Has returned to pre-Labetolol trends this morning. , patient's primary provider, to take over patient's care today.
[2017-05-30] MEDS: Sodium Chloride 0.9% 10 ML Syringe FLUSH PRN ×2 (13:47→14:41)
[2017-05-30] MEDS: cefTRIAXone 1 GM in Sodium Chloride 0.9% 100 ML IV SCH (13:47)
[2017-05-30] MEDS: Azithromycin 500 MG in Sodium Chloride 0.9% 250 ML IV SCH (14:41)
[2017-05-30] MEDS: ARIPiprazole 10 MG Tab PO SCH (19:31)
[2017-05-30] MEDS: Doxazosin 4 MG Tab PO SCH (19:34)
[2017-05-30] MEDS: Simvastatin 20 MG Tab PO SCH (19:35)
--- NOTE | 2017-05-30 21:29 | PCM.PN ---
- General Info Date of Service: 05/30/17 Admission Dx/Problem (Free Text): Shortness of breath, COPD exacerbation, hyperglycemia, suspected pneumonia. Subjective Update: Patient feels improved. Still has some SOB when ambulating to bathroom. No new complaints. Feels better today than yesterday. Able to ambulate with assistance down emmanuel. Functional Status: Reports: Tolerating Diet - Review of Systems General: Reports: No Symptoms HEENT: Reports: No Symptoms Pulmonary: Reports: Shortness of Breath Cardiovascular: Reports: No Symptoms Gastrointestinal: Reports: No Symptoms Genitourinary: Reports: No Symptoms Musculoskeletal: Reports: No Symptoms Skin: Reports: No Symptoms Neurological: Reports: No Symptoms Psychiatric: Reports: Depression, Anxiety - Patient Data Vitals - Most Recent: Last Vital Signs Temp 98.3 F 05/30/17 20:00 Pulse 71 05/30/17 20:00 Resp 20 05/30/17 20:00 BP 185/63 H 05/30/17 20:00 Pulse Ox 93 L 05/30/17 20:00 Weight - Most Recent: 198 lb 6.409 oz I&O - Last 24 Hours: Intake & Output 05/30/17 05/30/17 05/30/17 06:59 14:59 22:59 Intake Total 240 783 900 Output Total 700 200 Balance -460 783 700 Lab Results Last 24 Hours: Laboratory Results - last 24 hr 05/30/17 05/30/17 05/30/17 Range/Units 07:27 11:07 11:45 POC Glucose 225 H 259 H* 223 H (65-110) mg/dl 05/30/17 05/30/17 Range/Units 17:02 21:13 POC Glucose 264 H* 344 H* (65-110) mg/dl Med Orders - Current: Current Medications Acetaminophen (Tylenol) 650 mg PO Q4H PRN PRN Reason: Pain (Mild 1-3)/fever Albuterol (Proventil Neb Soln) 2.5 mg NEB Q4HRRT PRN PRN Reason: Shortness of Breath Albuterol/Ipratropium (Duoneb 3.0-0.5 Mg/3 Ml) 3 ml NEB QIDRT [facility] Allopurinol (Zyloprim) 100 mg PO BID@08,19 [facility] Last Admin: 05/30/17 19:33 Dose: 100 mg Aripiprazole (Abilify) 5 mg PO DAILY@1900 [facility] Last Admin: 05/30/17 19:31 Dose: 5 mg Aspirin (Ecotrin) 325 mg PO DAILY [facility] Last Admin: 05/30/17 07:59 Dose: 325 mg Azithromycin (Zithromax) 500 mg PO DAILY [facility] Bisacodyl (Dulcolax) 5 mg PO DAILY PRN PRN Reason: Constipation Carvedilol (Coreg) 12.5 mg PO BID@0800,1900 [facility] Coenzyme Q10 (Coenzyme Q10) 100 mg PO DAILY [facility] Last Admin: 05/30/17 07:58 Dose: 100 mg Diltiazem HCl (Cardizem Cd) 120 mg PO DAILY [facility] Last Admin: 05/30/17 07:58 Dose: 120 mg Diltiazem HCl (Cardizem Cd) 180 mg PO DAILY [facility] Last Admin: 05/30/17 07:57 Dose: 180 mg Doxazosin Mesylate (Cardura) 8 mg PO DAILY@1900 [facility] Last Admin: 05/30/17 19:34 Dose: 8 mg Glipizide (Glucotrol) 10 mg PO BID@,16 [facility] Last Admin: 05/30/17 15:38 Dose: 10 mg Hydralazine HCl (Apresoline) 50 mg PO BID@, [facility] Last Admin: 05/30/17 19:32 Dose: 50 mg Hydrochlorothiazide (Hydrochlorothiazide) 25 mg PO DAILY [facility] Last Admin: 05/30/17 07:57 Dose: 25 mg Ceftriaxone Sodium 1 gm/ (Sodium Chloride) 100 mls @ 200 mls/hr IV Q24H [facility] Last Admin: 05/30/17 13:47 Dose: 200 mls/hr Insulin Detemir (Levemir) 10 unit SUBCUT ONETIME ONE Stop: 05/30/17 21:46 Insulin Human Regular (Humulin R) 0 unit SUBCUT QID@0730,1130,17,21 [facility] PRN Reason: Protocol Last Admin: 05/30/17 17:11 Dose: 6 units Lisinopril (Prinivil) 10 mg PO BID@08,19 [facility] Last Admin: 05/30/17 19:35 Dose: 10 mg Lorazepam (Ativan) 0.25 mg PO DAILY PRN PRN Reason: Anxiety Last Admin: 05/28/17 19:44 Dose: 0.25 mg Omeprazole (Omeprazole) 20 mg PO BID@ [facility] Last Admin: 05/30/17 19:33 Dose: 20 mg Ondansetron HCl (Zofran) 4 mg IVPUSH Q6H PRN PRN Reason: Nausea/Vomiting Simvastatin (Zocor) 40 mg PO DAILY@1900 [facility] Last Admin: 05/30/17 19:35 Dose: 40 mg Sodium Chloride (Saline Flush) 10 ml FLUSH ASDIRECTED PRN PRN Reason: Keep Vein Open Last Admin: 05/30/17 14:41 Dose: 10 ml Sodium Chloride (Saline Flush) 10 ml FLUSH Q12HR [facility] Venlafaxine HCl (Effexor Xr) 75 mg PO DAILY [facility] Last Admin: 05/30/17 07:56 Dose: 75 mg Discontinued Medications Albuterol/Ipratropium (Duoneb 3.0-0.5 Mg/3 Ml) 3 ml NEB ONETIME ONE Stop: 05/27/17 09:19 Last Admin: 05/27/17 09:27 Dose: 3 ml Albuterol/Ipratropium (Duoneb 3.0-0.5 Mg/3 Ml) 3 ml NEB ONETIME ONE Stop: 05/27/17 09:50 Last Admin: 05/27/17 09:53 Dose: 3 ml Albuterol/Ipratropium (Duoneb 3.0-0.5 Mg/3 Ml) 3 ml NEB Q6HRRT [facility] Last Admin: 05/30/17 19:35 Dose: 3 ml Atenolol (Tenormin) 50 mg PO BID@ [facility] Last Admin: 05/30/17 19:33 Dose: 50 mg Atenolol (Tenormin) 25 mg PO ONETIME ONE Stop: 05/28/17 17:48 Last Admin: 05/28/17 18:29 Dose: 25 mg Furosemide (Lasix) 20 mg IVPUSH ONETIME ONE Stop: 05/27/17 09:51 Last Admin: 05/27/17 10:00 Dose: 20 mg Furosemide (Lasix) 20 mg IVPUSH ONETIME ONE Stop: 05/29/17 18:45 Last Admin: 05/29/17 19:26 Dose: 20 mg Sodium Chloride (Normal Saline) 1,000 mls @ 200 mls/hr IV ONETIME ONE Stop: 05/27/17 15:01 Last Admin: 05/27/17 10:37 Dose: 200 mls/hr Azithromycin 500 mg/ Sodium (Chloride) 250 mls @ 250 mls/hr IV ONETIME ONE Stop: 05/27/17 13:07 Last Admin: 05/27/17 13:29 Dose: 250 mls/hr Ceftriaxone Sodium 1 gm/ (Sodium Chloride) 100 mls @ 200 mls/hr IV ONETIME ONE Stop: 05/27/17 12:33 Last Admin: 05/27/17 12:43 Dose: 200 mls/hr Azithromycin 500 mg/ Sodium (Chloride) 250 mls @ 250 mls/hr IV Q24H [facility] Last Admin: 05/30/17 14:41 Dose: 250 mls/hr Insulin Human Regular (Humulin R) 6 unit SUBCUT ONETIME ONE PRN Reason: Protocol Stop: 05/27/17 10:01 Last Admin: 05/27/17 10:03 Dose: 6 unit Insulin Human Regular (Humulin R) 0 unit SUBCUT TIDAC [facility] PRN Reason: Protocol Last Admin: 05/28/17 17:01 Dose: 4 unit Insulin Human Regular (Humulin R) 8 unit SUBCUT ONETIME ONE PRN Reason: Protocol Stop: 05/27/17 20:11 Last Admin: 05/27/17 21:43 Dose: 8 units Iopamidol (Isovue-370 (76%)) 100 ml IVPUSH ONETIME ONE Stop: 05/27/17 10:31 Last Admin: 05/27/17 10:30 Dose: 100 ml Labetalol HCl (Normodyne) 2.5 mg IVPUSH ONETIME ONE PRN Reason: Protocol Stop: 05/29/17 22:52 Last Admin: 05/29/17 23:37 Dose: 2.5 mg Lisinopril (Prinivil) 5 mg PO ONETIME ONE Stop: 05/28/17 17:47 Last Admin: 05/28/17 18:29 Dose: 5 mg Lisinopril (Prinivil) 10 mg PO ONETIME ONE Stop: 05/29/17 16:07 Last Admin: 05/29/17 16:27 Dose: 10 mg Methylprednisolone Sodium Succinate (Solu-Medrol) 125 mg IVPUSH ONETIME ONE Stop: 05/27/17 09:50 Last Admin: 05/27/17 09:53 Dose: 125 mg Methylprednisolone Sodium Succinate (Solu-Medrol) 125 mg IVPUSH ONETIME ONE Stop: 05/28/17 17:44 Last Admin: 05/28/17 18:29 Dose: 125 mg Methylprednisolone Sodium Succinate (Solu-Medrol) 125 mg IVPUSH ONETIME ONE Stop: 05/29/17 18:31 Last Admin: 05/29/17 19:26 Dose: 125 mg Metoprolol Tartrate (Lopressor) 50 mg PO ONETIME ONE Stop: 05/29/17 16:05 Last Admin: 05/29/17 16:26 Dose: 50 mg Ondansetron HCl (Zofran Odt) 4 mg PO Q6H PRN PRN Reason: Nausea/Vomiting - Exam Quality Assessment: Supplemental Oxygen General: Alert, Cooperative, No Acute Distress HEENT: Pupils Equal, Pupils Reactive, EOMI, Mucous Membr. Moist/[place] Neck: Trachea Midline, No JVD Lungs: Normal Respiratory Effort, Decreased Breath Sounds, Rhonchi (upper lobes) Cardiovascular: Regular Rate, Regular Rhythm GI/Abdominal Exam: Normal Bowel Sounds, Soft, Non-Tender, No Distention (Male) Exam: Deferred Back Exam: Normal Inspection Extremities: Normal Inspection Skin: Warm, Dry, Intact Neurological: No New Focal Deficit Psy/Mental Status: Alert, Anxious, Depressed, Withdrawal Symptoms - Problem List & Annotations (1) Lung mass SNOMED Code(s): 010823859 Code(s): R91.8 - OTHER NONSPECIFIC ABNORMAL FINDING OF LUNG FIELD Status: Acute Priority: High Current Visit: Yes (2) Pneumonia, community acquired SNOMED Code(s): 615958663 Code(s): J18.9 - PNEUMONIA, UNSPECIFIED ORGANISM Status: Acute Priority: High Current Visit: Yes Onset Date: ~05/24/17 Qualifiers: Laterality: unspecified laterality Qualified Code(s): J18.9 - Pneumonia, unspecified organism Annotation/Comment:: CT showed small 3cm area left upper lobe that was questionable for early pneumonia vs other process. Radiology recommends follow up study in one month. Patient has no complaint of cough, pain, or fever. Zithromax and Rocephin coverage initiated in ER. (3) COPD exacerbation SNOMED Code(s): 399886988 Code(s): J44.1 - CHRONIC OBSTRUCTIVE PULMONARY DISEASE W (ACUTE) EXACERBATION Status: Chronic Priority: High Current Visit: Yes Onset Date: ~05/24/17 Annotation/Comment:: Improving. Down to 3L O2 via NC. O2 sats in upper 90s. Continues to have some wheezing. (4) Chronic renal insufficiency SNOMED Code(s): 325191517 Code(s): N18.9 - CHRONIC KIDNEY DISEASE, UNSPECIFIED Status: Chronic Priority: Low Current Visit: Yes Qualifiers: Chronic kidney disease stage: unspecified stage Qualified Code(s): N18.9 - Chronic kidney disease, unspecified (5) DM type 2 (diabetes mellitus, type 2) SNOMED Code(s): 35430422 Code(s): E11.9 - TYPE 2 DIABETES MELLITUS WITHOUT COMPLICATIONS Status: Chronic Priority: Medium Current Visit: Yes Qualifiers: Diabetes mellitus complication status: with hyperglycemia Annotation/Comment:: Elevated blood glucose noted in ER. SQ insulin given. Patient does not normally require insulin. Will initiate sliding scale coverage while inpatient and continue to monitor. (6) Essential hypertension SNOMED Code(s): 46036424 Code(s): I10 - ESSENTIAL (PRIMARY) HYPERTENSION Status: Chronic Priority : Low Current Visit: Yes Annotation/Comment:: Has persistently elevated systolic BPs. Continuing to monitor closely. Patient denies headaches/vision change. Additional Metoprolol and Lisinopril given to patient without much improvement noted. (7) Thrombocytopenia SNOMED Code(s): 729990769 Code(s): D69.6 - THROMBOCYTOPENIA, UNSPECIFIED Status: Chronic Priority: Low Current Visit: Yes (8) Depression SNOMED Code(s): 91460784 Code(s): F32.9 - MAJOR DEPRESSIVE DISORDER, SINGLE EPISODE, UNSPECIFIED Status: Chronic Current Visit: No Qualifiers: Depression Type: unspecified Qualified Code(s): F32.9 - Major depressive disorder, single episode, unspecified (9) Dry eye syndrome of lacrimal gland SNOMED Code(s): 81581621 Code(s): H04.129 - DRY EYE SYNDROME OF UNSPECIFIED LACRIMAL GLAND Status: Chronic Current Visit: No (10) Dyslipidemia SNOMED Code(s): 036966989 Code(s): E78.5 - HYPERLIPIDEMIA, UNSPECIFIED Status: Chronic Current Visit: No (11) GERD (gastroesophageal reflux disease) SNOMED Code(s): 177154341 Code(s): K21.9 - GASTRO-ESOPHAGEAL REFLUX DISEASE WITHOUT ESOPHAGITIS Status: Chronic Current Visit: No Qualifiers: Esophagitis presence: esophagitis presence not specified Qualified Code(s) : K21.9 - Gastro-esophageal reflux disease without esophagitis (12) Macular degeneration SNOMED Code(s): 234107756 Code(s): H35.30 - UNSPECIFIED MACULAR DEGENERATION Status: Chronic Current Visit: No (13) PVD (peripheral vascular disease) SNOMED Code(s): 747359481 Code(s): I73.9 - PERIPHERAL VASCULAR DISEASE, UNSPECIFIED Status: Chronic Current Visit: No (14) Personality disorder SNOMED Code(s): 10810556 Code(s): F60.9 - PERSONALITY DISORDER, UNSPECIFIED Status: Chronic Current Visit: No - Problem List Review Problem List Initiated/Reviewed/Updated: Yes - My Orders Last 24 Hours: My Active Orders 05/30/17 21:45 Insulin Detemir [Levemir] 10 unit SUBCUT ONETIME ONE 05/31/17 05:11 BLOOD GAS VENOUS [BG] Routine CBC WITH AUTO DIFF [HEME] Routine CMP [COMPREHENSIVE METABOLIC PN,CMP] [CHEM] Routine CRP [C-REACTIVE PROTEIN] [CHEM] Routine MAGNESIUM [CHEM] Routine URIC ACID [CHEM] Routine VIT D2 D3,25-HYDROXY LC-MS/MS [REF] Routine 05/31/17 08:00 Albuterol/Ipratropium [DuoNeb 3.0-0.5 MG/3 ML] 3 ml NEB QIDRT Azithromycin [Zithromax] 500 mg PO DAILY Carvedilol [Coreg] 12.5 mg PO BID@0800,1900 Sodium Chloride 0.9% [Saline Flush] 10 ml FLUSH Q12HR - Assessment Assessment:: COPD exacerbation with persistent increased SOB above baseline, improving. Suspected pneumonia, however cannot rule out neoplasm based on CT finding/chest xray when patient first evaluated. Persistent and difficult to treat hypertension. Labs performed today do not show any significant change from those performed at time of admission. Patient does not appear to have any significant component of CHF. Had mild increase of BNP on admission but no significant findings on radiological studies. - Plan Plan:: Continue IV antibiotics and nebulizer treatments. Continue to observe O2 sats and BP. Anticipate 2 more days of inpatient care. May need to consider swing bed depending on how well patient is able to get around and perform ADLs. Repeat chest xray Tuesday morning. PT/OT evaluation Tuesday. Primary provider to take over care of patient in the morning. 05/30/17 Michelle Benz MD Feels better. Blood pressure still elevated. He says [facility] wire winder just changed a lot of his blood pressure medications. Discussed lung CT results possible lung mass. He prefers work up at [facility] hospital/clinic. Continue medical therapy. Still requiring oxygen.
[2017-05-30] MEDS ORDERED: Insulin Detemir 100 Units/ML 3 ML Pen SUBCUT ONE (21:45)
[2017-05-31 07:26] LABS: O2 DELIVERY DEVICE NASAL CANNULA
[2017-05-31 07:35] LABS: BASE EXCESS VENOUS 7 mmol/L ((-2)-3); BICARBONATE,VENOUS 32 mmol/L (23-28); O2 SATURATION VENOUS 100 %; PCO2 VENOUS 51 mmHG (41-51); PO2 VENOUS 183 mmHG
[2017-05-31 07:36] LABS: CHLORIDE,CL 105 mmol/L (98-107); SODIUM,NA 142 mmol/L (136-145)
[2017-05-31] MEDS ORDERED: Azithromycin 250 MG Tab PO SCH (08:00)
[2017-05-31] MEDS ORDERED: Sodium Chloride 0.9% 10 ML Syringe FLUSH SCH (08:00)
[2017-05-31] MEDS ORDERED: Carvedilol 12.5 MG Tab PO SCH (08:00)
[2017-05-31] MEDS: Insulin Regular, Human 100 Units/ML 3 ML Vial SUBCUT SCH ×2 (08:41→12:10)
[2017-05-31] MEDS: Venlafaxine 75 MG Cap.ER PO SCH (08:42)
[2017-05-31] MEDS: glipiZIDE 5 MG Tab PO SCH (08:42)
[2017-05-31] MEDS: Albuterol/Ipratropium 3.0-0.5 MG/3 ML Neb Soln NEB SCH ×2 (08:42→12:10)
[2017-05-31] MEDS: Hydrochlorothiazide 25 MG Tab PO SCH (08:42)
[2017-05-31] MEDS: Aspirin 325 MG Tab.EC PO SCH (08:43)
[2017-05-31] MEDS: Lisinopril 10 MG Tab PO SCH (08:43)
[2017-05-31] MEDS: Omeprazole 20 MG Cap.CR PO SCH (08:43)
[2017-05-31] MEDS: Allopurinol 100 MG Tab PO SCH (08:44)
[2017-05-31] MEDS: hydrALAZINE 50 MG Tab PO SCH (08:45)
[2017-05-31] MEDS: Diltiazem 180 MG Cap.CD PO SCH (08:52)
[2017-05-31] MEDS: Diltiazem 120 MG Cap.CD PO SCH (08:53)
--- NOTE | 2017-05-31 11:46 | PCM.PN ---
- General Info Date of Service: 05/31/17 Admission Dx/Problem (Free Text): Shortness of breath, COPD exacerbation, hyperglycemia, suspected pneumonia. Subjective Update: Patient feels improved. Still has some SOB when ambulating to bathroom. No new complaints. Feels better today than yesterday. Able to ambulate with assistance down emmanuel. Functional Status: Reports: Pain Controlled, Tolerating Diet, Ambulating - Review of Systems General: Reports: No Symptoms HEENT: Reports: No Symptoms Pulmonary: Reports: No Symptoms Cardiovascular: Reports: No Symptoms Gastrointestinal: Reports: No Symptoms Genitourinary: Reports: No Symptoms Musculoskeletal: Reports: No Symptoms Skin: Reports: No Symptoms Neurological: Reports: No Symptoms Psychiatric: Reports: No Symptoms - Patient Data Vitals - Most Recent: Last Vital Signs Temp 98 F 05/31/17 07:57 Pulse 70 05/31/17 08:53 Resp 20 05/30/17 20:00 BP 159/98 H 05/31/17 08:53 Pulse Ox 92 L 05/31/17 11:35 Weight - Most Recent: 198 lb 6.409 oz I&O - Last 24 Hours: Intake & Output 05/30/17 05/31/17 05/31/17 22:59 06:59 14:59 Intake Total 1020 Output Total 400 1300 Balance 620 -1300 Lab Results Last 24 Hours: Laboratory Results - last 24 hr 05/30/17 05/30/17 05/30/17 Range/Units 11:07 11:45 17:02 WBC (4.0-10.2) K/uL RBC (4.33-5.41) M/uL Hgb (13.1-16.8) g/dL Hct (39.0-49.0) % MCV (84.0-98.0) fL MCH (28.2-33.3) pg MCHC (31.7-36.0) g/dL RDW (11.2-14.1) % Plt Count (150-350) K/uL Neut % (Auto) (45.0-80.0) % Lymph % (Auto) (10.0-50.0) % Woodruff % (Auto) (2.0-14.0) % Eos % (Auto) (0.0-5.0) % Baso % (Auto) (0.0-2.0) % Neut # (Auto) (1.40-7.00) K/uL Lymph # (Auto) (0.50-3.50) K/uL Woodruff # (Auto) (0.00-1.00) K/uL Eos # (Auto) (0.00-0.50) K/uL Baso # (Auto) (0.00-0.20) K/uL VBG pH (7.31-7.41) VBG pCO2 (41-51) mmHG VBG pO2 mmHG VBG HCO3 (23-28) mmol/L VBG Total CO2 mmol/L VBG O2 Saturation % VBG Base Excess ((-2)-3) mmol/L O2 Delivery Device Oxygen Flow Rate L/min Sodium (136-145) mmol/L Potassium (3.5-5.1) mmol/L Chloride (98-107) mmol/L Carbon Dioxide (21.0-32.0) mmol/L BUN (7-18) mg/dL Creatinine (0.51-1.17) mg/dL Est Cr Clr Drug Dosing mL/min Estimated GFR (MDRD) mL/min Glucose (74-106) mg/dL POC Glucose 259 H* 223 H 264 H* (65-110) mg/dl Uric Acid (2.6-7.2) mg/dL Calcium (8.5-10.1) mg/dL Magnesium (1.8-2.4) mg/dL Total Bilirubin (0.2-1.0) mg/dL AST (15-37) U/L ALT (12-78) U/L Alkaline Phosphatase (46-116) IU/L C-Reactive Protein (<=0.9) mg/dL Total Protein (6.4-8.2) g/dL Albumin (3.4-5.0) g/dL 05/30/17 05/31/17 05/31/17 Range/Units 21:13 07:08 07:08 WBC 11.3 H (4.0-10.2) K/uL RBC 3.91 L (4.33-5.41) M/uL Hgb 12.2 L (13.1-16.8) g/dL Hct 36.6 L (39.0-49.0) % MCV 93.6 (84.0-98.0) fL MCH 31.2 (28.2-33.3) pg MCHC 33.3 (31.7-36.0) g/dL RDW 14.0 (11.2-14.1) % Plt Count 135 L (150-350) K/uL Neut % (Auto) 80.5 H (45.0-80.0) % Lymph % (Auto) 11.8 (10.0-50.0) % Woodruff % (Auto) 7.4 (2.0-14.0) % Eos % (Auto) 0.0 (0.0-5.0) % Baso % (Auto) 0.3 (0.0-2.0) % Neut # (Auto) 9.09 H (1.40-7.00) K/uL Lymph # (Auto) 1.33 (0.50-3.50) K/uL Woodruff # (Auto) 0.84 (0.00-1.00) K/uL Eos # (Auto) 0.00 (0.00-0.50) K/uL Baso # (Auto) 0.03 (0.00-0.20) K/uL VBG pH (7.31-7.41) VBG pCO2 (41-51) mmHG VBG pO2 mmHG VBG HCO3 (23-28) mmol/L VBG Total CO2 mmol/L VBG O2 Saturation % VBG Base Excess ((-2)-3) mmol/L O2 Delivery Device Oxygen Flow Rate L/min Sodium 142 (136-145) mmol/L Potassium 3.8 (3.5-5.1) mmol/L Chloride 105 (98-107) mmol/L Carbon Dioxide 30.3 (21.0-32.0) mmol/L BUN 35 H (7-18) mg/dL Creatinine 1.32 H (0.51-1.17) mg/dL Est Cr Clr Drug Dosing 47.87 mL/min Estimated GFR (MDRD) 53 mL/min Glucose 135 H (74-106) mg/dL POC Glucose 344 H* (65-110) mg/dl Uric Acid 5.6 (2.6-7.2) mg/dL Calcium 8.7 (8.5-10.1) mg/dL Magnesium 2.0 (1.8-2.4) mg/dL Total Bilirubin 0.2 (0.2-1.0) mg/dL AST 28 (15-37) U/L ALT 40 (12-78) U/L Alkaline Phosphatase 65 (46-116) IU/L C-Reactive Protein < 0.1 (<=0.9) mg/dL Total Protein 6.4 (6.4-8.2) g/dL Albumin 2.8 L (3.4-5.0) g/dL 05/31/17 05/31/17 Range/Units 07:08 07:15 WBC (4.0-10.2) K/uL RBC (4.33-5.41) M/uL Hgb (13.1-16.8) g/dL Hct (39.0-49.0) % MCV (84.0-98.0) fL MCH (28.2-33.3) pg MCHC (31.7-36.0) g/dL RDW (11.2-14.1) % Plt Count (150-350) K/uL Neut % (Auto) (45.0-80.0) % Lymph % (Auto) (10.0-50.0) % Woodruff % (Auto) (2.0-14.0) % Eos % (Auto) (0.0-5.0) % Baso % (Auto) (0.0-2.0) % Neut # (Auto) (1.40-7.00) K/uL Lymph # (Auto) (0.50-3.50) K/uL Woodruff # (Auto) (0.00-1.00) K/uL Eos # (Auto) (0.00-0.50) K/uL Baso # (Auto) (0.00-0.20) K/uL VBG pH 7.40 (7.31-7.41) VBG pCO2 51 (41-51) mmHG VBG pO2 183 mmHG VBG HCO3 32 H (23-28) mmol/L VBG Total CO2 33 mmol/L VBG O2 Saturation 100 % VBG Base Excess 7 H ((-2)-3) mmol/L O2 Delivery Device Nasal cannula Oxygen Flow Rate L/min Sodium (136-145) mmol/L Potassium (3.5-5.1) mmol/L Chloride (98-107) mmol/L Carbon Dioxide (21.0-32.0) mmol/L BUN (7-18) mg/dL Creatinine (0.51-1.17) mg/dL Est Cr Clr Drug Dosing mL/min Estimated GFR (MDRD) mL/min Glucose (74-106) mg/dL POC Glucose 126 H (65-110) mg/dl Uric Acid (2.6-7.2) mg/dL Calcium (8.5-10.1) mg/dL Magnesium (1.8-2.4) mg/dL Total Bilirubin (0.2-1.0) mg/dL AST (15-37) U/L ALT (12-78) U/L Alkaline Phosphatase (46-116) IU/L C-Reactive Protein (<=0.9) mg/dL Total Protein (6.4-8.2) g/dL Albumin (3.4-5.0) g/dL Med Orders - Current: Current Medications Acetaminophen (Tylenol) 650 mg PO Q4H PRN PRN Reason: Pain (Mild 1-3)/fever Albuterol (Proventil Neb Soln) 2.5 mg NEB Q4HRRT PRN PRN Reason: Shortness of Breath Albuterol/Ipratropium (Duoneb 3.0-0.5 Mg/3 Ml) 3 ml NEB QIDRT [facility] Last Admin: 05/31/17 08:42 Dose: 3 ml Allopurinol (Zyloprim) 100 mg PO BID@08,19 [facility] Last Admin: 05/31/17 08:44 Dose: 100 mg Aripiprazole (Abilify) 5 mg PO DAILY@1900 [facility] Last Admin: 05/30/17 19:31 Dose: 5 mg Aspirin (Ecotrin) 325 mg PO DAILY [facility] Last Admin: 05/31/17 08:43 Dose: 325 mg Azithromycin (Zithromax) 500 mg PO DAILY [facility] Last Admin: 05/31/17 08:43 Dose: 500 mg Bisacodyl (Dulcolax) 5 mg PO DAILY PRN PRN Reason: Constipation Carvedilol (Coreg) 12.5 mg PO BID@0800,1900 [facility] Last Admin: 05/31/17 08:53 Dose: 12.5 mg Coenzyme Q10 (Coenzyme Q10) 100 mg PO DAILY [facility] Last Admin: 05/31/17 08:44 Dose: 100 mg Diltiazem HCl (Cardizem Cd) 120 mg PO DAILY [facility] Last Admin: 05/31/17 08:53 Dose: 120 mg Diltiazem HCl (Cardizem Cd) 180 mg PO DAILY [facility] Last Admin: 05/31/17 08:52 Dose: 180 mg Doxazosin Mesylate (Cardura) 8 mg PO DAILY@190 [facility] Last Admin: 05/30/17 19:34 Dose: 8 mg Glipizide (Glucotrol) 10 mg PO BID@ [facility] Last Admin: 05/31/17 08:42 Dose: 10 mg Hydralazine HCl (Apresoline) 50 mg PO BID@ [facility] Last Admin: 05/31/17 08:45 Dose: 50 mg Hydrochlorothiazide (Hydrochlorothiazide) 25 mg PO DAILY [facility] Last Admin: 05/31/17 08:42 Dose: 25 mg Ceftriaxone Sodium 1 gm/ (Sodium Chloride) 100 mls @ 200 mls/hr IV Q24H [facility] Last Admin: 05/30/17 13:47 Dose: 200 mls/hr Insulin Human Regular (Humulin R) 0 unit SUBCUT QID@0730,1130,17,21 [facility] PRN Reason: Protocol Last Admin: 05/31/17 08:41 Dose: Not Given Lisinopril (Prinivil) 10 mg PO BID@ [facility] Last Admin: 05/31/17 08:43 Dose: 10 mg Lorazepam (Ativan) 0.25 mg PO DAILY PRN PRN Reason: Anxiety Last Admin: 05/28/17 19:44 Dose: 0.25 mg Omeprazole (Omeprazole) 20 mg PO BID@ [facility] Last Admin: 05/31/17 08:43 Dose: 20 mg Ondansetron HCl (Zofran) 4 mg IVPUSH Q6H PRN PRN Reason: Nausea/Vomiting Simvastatin (Zocor) 40 mg PO DAILY@190 [facility] Last Admin: 05/30/17 19:35 Dose: 40 mg Sodium Chloride (Saline Flush) 10 ml FLUSH ASDIRECTED PRN PRN Reason: Keep Vein Open Last Admin: 05/30/17 14:41 Dose: 10 ml Sodium Chloride (Saline Flush) 10 ml FLUSH Q12HR [facility] Last Admin: 05/31/17 08:44 Dose: 10 ml Venlafaxine HCl (Effexor Xr) 75 mg PO DAILY [facility] Last Admin: 05/31/17 08:42 Dose: 75 mg Discontinued Medications Albuterol/Ipratropium (Duoneb 3.0-0.5 Mg/3 Ml) 3 ml NEB ONETIME ONE Stop: 05/27/17 09:19 Last Admin: 05/27/17 09:27 Dose: 3 ml Albuterol/Ipratropium (Duoneb 3.0-0.5 Mg/3 Ml) 3 ml NEB ONETIME ONE Stop: 05/27/17 09:50 Last Admin: 05/27/17 09:53 Dose: 3 ml Albuterol/Ipratropium (Duoneb 3.0-0.5 Mg/3 Ml) 3 ml NEB Q6HRRT [facility] Last Admin: 05/30/17 19:35 Dose: 3 ml Atenolol (Tenormin) 50 mg PO BID@ [facility] Last Admin: 05/30/17 19:33 Dose: 50 mg Atenolol (Tenormin) 25 mg PO ONETIME ONE Stop: 05/28/17 17:48 Last Admin: 05/28/17 18:29 Dose: 25 mg Furosemide (Lasix) 20 mg IVPUSH ONETIME ONE Stop: 05/27/17 09:51 Last Admin: 05/27/17 10:00 Dose: 20 mg Furosemide (Lasix) 20 mg IVPUSH ONETIME ONE Stop: 05/29/17 18:45 Last Admin: 05/29/17 19:26 Dose: 20 mg Sodium Chloride (Normal Saline) 1,000 mls @ 200 mls/hr IV ONETIME ONE Stop: 05/27/17 15:01 Last Admin: 05/27/17 10:37 Dose: 200 mls/hr Azithromycin 500 mg/ Sodium (Chloride) 250 mls @ 250 mls/hr IV ONETIME ONE Stop: 05/27/17 13:07 Last Admin: 05/27/17 13:29 Dose: 250 mls/hr Ceftriaxone Sodium 1 gm/ (Sodium Chloride) 100 mls @ 200 mls/hr IV ONETIME ONE Stop: 05/27/17 12:33 Last Admin: 05/27/17 12:43 Dose: 200 mls/hr Azithromycin 500 mg/ Sodium (Chloride) 250 mls @ 250 mls/hr IV Q24H [facility] Last Admin: 05/30/17 14:41 Dose: 250 mls/hr Insulin Detemir (Levemir) 10 unit SUBCUT ONETIME ONE Stop: 05/30/17 21:46 Last Admin: 05/30/17 21:32 Dose: 10 units Insulin Human Regular (Humulin R) 6 unit SUBCUT ONETIME ONE PRN Reason: Protocol Stop: 05/27/17 10:01 Last Admin: 05/27/17 10:03 Dose: 6 unit Insulin Human Regular (Humulin R) 0 unit SUBCUT TIDAC KALPANA PRN Reason: Protocol Last Admin: 05/28/17 17:01 Dose: 4 unit Insulin Human Regular (Humulin R) 8 unit SUBCUT ONETIME ONE PRN Reason: Protocol Stop: 05/27/17 20:11 Last Admin: 05/27/17 21:43 Dose: 8 units Iopamidol (Isovue-370 (76%)) 100 ml IVPUSH ONETIME ONE Stop: 05/27/17 10:31 Last Admin: 05/27/17 10:30 Dose: 100 ml Labetalol HCl (Normodyne) 2.5 mg IVPUSH ONETIME ONE PRN Reason: Protocol Stop: 05/29/17 22:52 Last Admin: 05/29/17 23:37 Dose: 2.5 mg Lisinopril (Prinivil) 5 mg PO ONETIME ONE Stop: 05/28/17 17:47 Last Admin: 05/28/17 18:29 Dose: 5 mg Lisinopril (Prinivil) 10 mg PO ONETIME ONE Stop: 05/29/17 16:07 Last Admin: 05/29/17 16:27 Dose: 10 mg Methylprednisolone Sodium Succinate (Solu-Medrol) 125 mg IVPUSH ONETIME ONE Stop: 05/27/17 09:50 Last Admin: 05/27/17 09:53 Dose: 125 mg Methylprednisolone Sodium Succinate (Solu-Medrol) 125 mg IVPUSH ONETIME ONE Stop: 05/28/17 17:44 Last Admin: 05/28/17 18:29 Dose: 125 mg Methylprednisolone Sodium Succinate (Solu-Medrol) 125 mg IVPUSH ONETIME ONE Stop: 05/29/17 18:31 Last Admin: 05/29/17 19:26 Dose: 125 mg Metoprolol Tartrate (Lopressor) 50 mg PO ONETIME ONE Stop: 05/29/17 16:05 Last Admin: 05/29/17 16:26 Dose: 50 mg Ondansetron HCl (Zofran Odt) 4 mg PO Q6H PRN PRN Reason: Nausea/Vomiting - Exam Quality Assessment: Supplemental Oxygen General: Alert, Cooperative, No Acute Distress HEENT: Pupils Equal, Pupils Reactive, EOMI, Mucous Membr. Moist/[place] Neck: Trachea Midline, No JVD Lungs: Normal Respiratory Effort, Wheezing Cardiovascular: Regular Rate, Regular Rhythm GI/Abdominal Exam: Soft, Non-Tender, No Distention (Male) Exam: Deferred Back Exam: Normal Inspection Extremities: Normal Inspection, No Pedal Edema Skin: Warm, Dry, Intact Neurological: No New Focal Deficit Psy/Mental Status: Alert, Normal Affect, Normal Mood - Problem List & Annotations (1) Lung mass SNOMED Code(s): 780450215 Code(s): R91.8 - OTHER NONSPECIFIC ABNORMAL FINDING OF LUNG FIELD Status: Acute Priority: High Current Visit: Yes (2) Pneumonia, community acquired SNOMED Code(s): 011673622 Code(s): J18.9 - PNEUMONIA, UNSPECIFIED ORGANISM Status: Acute Priority: High Current Visit: Yes Onset Date: ~05/24/17 Qualifiers: Laterality: unspecified laterality Qualified Code(s): J18.9 - Pneumonia, unspecified organism Annotation/Comment:: CT showed small 3cm area left upper lobe that was questionable for early pneumonia vs other process. Radiology recommends follow up study in one month. Patient has no complaint of cough, pain, or fever. Zithromax and Rocephin coverage initiated in ER. (3) COPD exacerbation SNOMED Code(s): 354439264 Code(s): J44.1 - CHRONIC OBSTRUCTIVE PULMONARY DISEASE W (ACUTE) EXACERBATION Status: Chronic Priority: High Current Visit: Yes Onset Date: ~05/24/17 Annotation/Comment:: Improving. Down to 3L O2 via NC. O2 sats in upper 90s. Continues to have some wheezing. (4) Chronic renal insufficiency SNOMED Code(s): 943442057 Code(s): N18.9 - CHRONIC KIDNEY DISEASE, UNSPECIFIED Status: Chronic Priority: Low Current Visit: Yes Qualifiers: Chronic kidney disease stage: unspecified stage Qualified Code(s): N18.9 - Chronic kidney disease, unspecified (5) DM type 2 (diabetes mellitus, type 2) SNOMED Code(s): 40027018 Code(s): E11.9 - TYPE 2 DIABETES MELLITUS WITHOUT COMPLICATIONS Status: Chronic Priority: Medium Current Visit: Yes Qualifiers: Diabetes mellitus complication status: with hyperglycemia Annotation/Comment:: Elevated blood glucose noted in ER. SQ insulin given. Patient does not normally require insulin. Will initiate sliding scale coverage while inpatient and continue to monitor. (6) Essential hypertension SNOMED Code(s): 37278985 Code(s): I10 - ESSENTIAL (PRIMARY) HYPERTENSION Status: Chronic Priority : Low Current Visit: Yes Annotation/Comment:: Has persistently elevated systolic BPs. Continuing to monitor closely. Patient denies headaches/vision change. Additional Metoprolol and Lisinopril given to patient without much improvement noted. (7) Thrombocytopenia SNOMED Code(s): 181890592 Code(s): D69.6 - THROMBOCYTOPENIA, UNSPECIFIED Status: Chronic Priority: Low Current Visit: Yes (8) Depression SNOMED Code(s): 66916310 Code(s): F32.9 - MAJOR DEPRESSIVE DISORDER, SINGLE EPISODE, UNSPECIFIED Status: Chronic Current Visit: No Qualifiers: Depression Type: unspecified Qualified Code(s): F32.9 - Major depressive disorder, single episode, unspecified (9) Dry eye syndrome of lacrimal gland SNOMED Code(s): 43476671 Code(s): H04.129 - DRY EYE SYNDROME OF UNSPECIFIED LACRIMAL GLAND Status: Chronic Current Visit: No (10) Dyslipidemia SNOMED Code(s): 885182447 Code(s): E78.5 - HYPERLIPIDEMIA, UNSPECIFIED Status: Chronic Current Visit: No (11) GERD (gastroesophageal reflux disease) SNOMED Code(s): 863480381 Code(s): K21.9 - GASTRO-ESOPHAGEAL REFLUX DISEASE WITHOUT ESOPHAGITIS Status: Chronic Current Visit: No Qualifiers: Esophagitis presence: esophagitis presence not specified Qualified Code(s) : K21.9 - Gastro-esophageal reflux disease without esophagitis (12) Macular degeneration SNOMED Code(s): 479641204 Code(s): H35.30 - UNSPECIFIED MACULAR DEGENERATION Status: Chronic Current Visit: No (13) PVD (peripheral vascular disease) SNOMED Code(s): 916114061 Code(s): I73.9 - PERIPHERAL VASCULAR DISEASE, UNSPECIFIED Status: Chronic Current Visit: No (14) Personality disorder SNOMED Code(s): 06458270 Code(s): F60.9 - PERSONALITY DISORDER, UNSPECIFIED Status: Chronic Current Visit: No - Problem List Review Problem List Initiated/Reviewed/Updated: Yes - My Orders Last 24 Hours: My Active Orders 05/31/17 07:08 VIT D2 D3,25-HYDROXY LC-MS/MS [REF] Routine 05/31/17 08:00 Albuterol/Ipratropium [DuoNeb 3.0-0.5 MG/3 ML] 3 ml NEB QIDRT Azithromycin [Zithromax] 500 mg PO DAILY Carvedilol [Coreg] 12.5 mg PO BID@0800,1900 Sodium Chloride 0.9% [Saline Flush] 10 ml FLUSH Q12HR - Assessment Assessment:: COPD exacerbation with persistent increased SOB above baseline, improving. Suspected pneumonia, however cannot rule out neoplasm based on CT finding/chest xray when patient first evaluated. Persistent and difficult to treat hypertension. Labs performed today do not show any significant change from those performed at time of admission. Patient does not appear to have any significant component of CHF. Had mild increase of BNP on admission but no significant findings on radiological studies. - Plan Plan:: Continue IV antibiotics and nebulizer treatments. Continue to observe O2 sats and BP. Anticipate 2 more days of inpatient care. May need to consider swing bed depending on how well patient is able to get around and perform ADLs. Repeat chest xray Tuesday morning. PT/OT evaluation Tuesday. Primary provider to take over care of patient in the morning. 05/30/17 Michelle Benz MD Feels better. Blood pressure still elevated. 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 Discussed lung CT results possible lung mass. He prefers work up at [facility] hospital/clinic. Continue medical therapy. Still requiring oxygen. 05/31/17 Michelle Benz MD Feels fine. Wants to go back to [facility] today and have medical work up as outpatient at the [facility]. O2 saturations on room air at rest 90%-91%. Will order oxygen therapy prn. Discussed starting insulin and he is in agreement.
--- NOTE | 2017-05-31 11:51 | PCM.DCSUM1 ---
Discharge Summary - Discharge Data Discharge Date: 05/31/17 Discharge Disposition: Home, Self-Care 01 Condition: Good - Discharge Diagnosis/Problem(s) (1) Lung mass SNOMED Code(s): 471024242 ICD Code: R91.8 - OTHER NONSPECIFIC ABNORMAL FINDING OF LUNG FIELD Status: Acute Priority: High Current Visit: Yes (2) Pneumonia, community acquired SNOMED Code(s): 181207083 ICD Code: J18.9 - PNEUMONIA, UNSPECIFIED ORGANISM Status: Acute Priority : High Current Visit: Yes Onset Date: ~05/24/17 Problem Details: CT showed small 3cm area left upper lobe that was questionable for early pneumonia vs other process. Radiology recommends follow up study in one month. Patient has no complaint of cough, pain, or fever. Zithromax and Rocephin coverage initiated in ER. Qualifiers: Laterality: unspecified laterality Qualified Code(s): J18.9 - Pneumonia, unspecified organism (3) COPD exacerbation SNOMED Code(s): 741400406 ICD Code: J44.1 - CHRONIC OBSTRUCTIVE PULMONARY DISEASE W (ACUTE) EXACERBATION Status: Chronic Priority: High Current Visit: Yes Onset Date: ~05/24/17 Problem Details: Improving. Down to 3L O2 via NC. O2 sats in upper 90s. Continues to have some wheezing. (4) Chronic renal insufficiency SNOMED Code(s): 672419315 ICD Code: N18.9 - CHRONIC KIDNEY DISEASE, UNSPECIFIED Status: Chronic Priority: Low Current Visit: Yes Qualifiers: Chronic kidney disease stage: unspecified stage Qualified Code(s): N18.9 - Chronic kidney disease, unspecified (5) DM type 2 (diabetes mellitus, type 2) SNOMED Code(s): 58474465 ICD Code: E11.9 - TYPE 2 DIABETES MELLITUS WITHOUT COMPLICATIONS Status: Chronic Priority: Medium Current Visit: Yes Problem Details: Elevated blood glucose noted in ER. SQ insulin given. Patient does not normally require insulin. Will initiate sliding scale coverage while inpatient and continue to monitor. Qualifiers: Diabetes mellitus complication status: with hyperglycemia (6) Essential hypertension SNOMED Code(s): 11589614 ICD Code: I10 - ESSENTIAL (PRIMARY) HYPERTENSION Status: Chronic Priority : Low Current Visit: Yes Problem Details: Has persistently elevated systolic BPs. Continuing to monitor closely. Patient denies headaches/vision change. Additional Metoprolol and Lisinopril given to patient without much improvement noted. (7) Thrombocytopenia SNOMED Code(s): 770083629 ICD Code: D69.6 - THROMBOCYTOPENIA, UNSPECIFIED Status: Chronic Priority : Low Current Visit: Yes (8) Depression SNOMED Code(s): 30213323 ICD Code: F32.9 - MAJOR DEPRESSIVE DISORDER, SINGLE EPISODE, UNSPECIFIED Status: Chronic Current Visit: No Qualifiers: Depression Type: unspecified Qualified Code(s): F32.9 - Major depressive disorder, single episode, unspecified (9) Dry eye syndrome of lacrimal gland SNOMED Code(s): 01967824 ICD Code: H04.129 - DRY EYE SYNDROME OF UNSPECIFIED LACRIMAL GLAND Status: Chronic Current Visit: No (10) Dyslipidemia SNOMED Code(s): 879796386 ICD Code: E78.5 - HYPERLIPIDEMIA, UNSPECIFIED Status: Chronic Current Visit: No (11) GERD (gastroesophageal reflux disease) SNOMED Code(s): 034497079 ICD Code: K21.9 - GASTRO-ESOPHAGEAL REFLUX DISEASE WITHOUT ESOPHAGITIS Status: Chronic Current Visit: No Qualifiers: Esophagitis presence: esophagitis presence not specified Qualified Code(s) : K21.9 - Gastro-esophageal reflux disease without esophagitis (12) Macular degeneration SNOMED Code(s): 031798552 ICD Code: H35.30 - UNSPECIFIED MACULAR DEGENERATION Status: Chronic Current Visit: No (13) PVD (peripheral vascular disease) SNOMED Code(s): 426528923 ICD Code: I73.9 - PERIPHERAL VASCULAR DISEASE, UNSPECIFIED Status: Chronic Current Visit: No (14) Personality disorder SNOMED Code(s): 23039253 ICD Code: F60.9 - PERSONALITY DISORDER, UNSPECIFIED Status: Chronic Current Visit: No - Patient Summary/Data Consults: Consultations 05/29/17 16:08 OT Evaluation and Treatment [CONS] Routine PT Evaluation and Treatment [CONS] Routine - Patient Instructions Diet: Diabetic Diet Driving: Do Not Drive Showering/Bathing: May Shower Notify Provider of: Fever - Discharge Plan Home Medications: Home Meds ARIPiprazole [Abilify] 5 mg PO DAILY@1900 05/27/17 [History] Acetaminophen [Tylenol] 1 - 2 tab PO Q6HR PRN 05/27/17 [History] Allopurinol [Zyloprim] 100 mg PO BID@,05/27/17 [History] Aspirin [Ecotrin] 325 mg PO DAILY 05/27/17 [History] Atenolol 50 mg PO BID@,05/27/17 [History] Budesonide/Formoterol Fumarate [Symbicort 160-4.5 Mcg Inhaler] 2 puff INH BID@ ,05/27/17 [History] Calcium Carbonate [Tums] 300 mg PO DAILY 05/27/17 [History] Cholecalciferol (Vitamin D3) [Vitamin D3] 2,000 unit PO DAILY 05/27/17 [History] Diltiazem HCl [Cardizem Cd] 300 mg PO DAILY 05/27/17 [History] Doxazosin Mesylate [Cardura] 8 mg PO DAILY@189905/27/17 [History] Flaxseed Oil [Flax Oil] 1,000 mg PO BID@,05/27/17 [History] Hydrochlorothiazide 25 mg PO DAILY 05/27/17 [History] LORazepam 0.25 mg PO DAILY PRN 05/27/17 [History] Lisinopril 10 mg PO BID@,05/27/17 [History] Multivitamin with Minerals [Tjb-U-Amud-Minerals] 1 tab PO DAILY 05/27/17 [ History] [place]-3/DHA/Epa/Fish Oil [Fish Oil 1,000 mg Softgel] 1 cap PO BID@, [History] Omeprazole 20 mg PO BID@,05/27/17 [History] Simvastatin [Zocor] 40 mg PO DAILY@189905/27/17 [History] Venlafaxine [Effexor XR 24 Hr] 75 mg PO DAILY 05/27/17 [History] glipiZIDE [Glucotrol] 10 mg PO BID@,05/27/17 [History] hydrALAZINE [Apresoline] 50 mg PO BID@,05/27/17 [History] Patient Handouts: Hypoxemia, Ceftriaxone injection, Azithromycin for infusion Forms: ED Department Discharge Referrals: Melva Squires PA [Primary Care Provider] - - Discharge Summary/Plan Comment DC Time >30 min.: No Discharge Summary/Plan Comment: Back to [facility] Basic Care unit with prn O2, antibiotics, insulin, PT-OT evaluate and treat, and out patient work up for lung mass at the [facility]. - Patient Data Vitals - Most Recent: Last Vital Signs Temp 98 F 05/31/17 07:57 Pulse 70 05/31/17 08:53 Resp 20 05/30/17 20:00 BP 159/98 H 05/31/17 08:53 Pulse Ox 92 L 05/31/17 11:35 Weight - Most Recent: 198 lb 6.409 oz I&O - Last 24 hours: Intake & Output 05/30/17 05/31/17 05/31/17 22:59 06:59 14:59 Intake Total 1020 Output Total 400 1300 Balance 620 -1300 Lab Results - Last 24 hrs: Laboratory Results - last 24 hr 05/30/17 05/30/17 05/30/17 Range/Units 11:07 11:45 17:02 WBC (4.0-10.2) K/uL RBC (4.33-5.41) M/uL Hgb (13.1-16.8) g/dL Hct (39.0-49.0) % MCV (84.0-98.0) fL MCH (28.2-33.3) pg MCHC (31.7-36.0) g/dL RDW (11.2-14.1) % Plt Count (150-350) K/uL Neut % (Auto) (45.0-80.0) % Lymph % (Auto) (10.0-50.0) % Starke % (Auto) (2.0-14.0) % Eos % (Auto) (0.0-5.0) % Baso % (Auto) (0.0-2.0) % Neut # (Auto) (1.40-7.00) K/uL Lymph # (Auto) (0.50-3.50) K/uL Starke # (Auto) (0.00-1.00) K/uL Eos # (Auto) (0.00-0.50) K/uL Baso # (Auto) (0.00-0.20) K/uL VBG pH (7.31-7.41) VBG pCO2 (41-51) mmHG VBG pO2 mmHG VBG HCO3 (23-28) mmol/L VBG Total CO2 mmol/L VBG O2 Saturation % VBG Base Excess ((-2)-3) mmol/L O2 Delivery Device Oxygen Flow Rate L/min Sodium (136-145) mmol/L Potassium (3.5-5.1) mmol/L Chloride (98-107) mmol/L Carbon Dioxide (21.0-32.0) mmol/L BUN (7-18) mg/dL Creatinine (0.51-1.17) mg/dL Est Cr Clr Drug Dosing mL/min Estimated GFR (MDRD) mL/min Glucose (74-106) mg/dL POC Glucose 259 H* 223 H 264 H* (65-110) mg/dl Uric Acid (2.6-7.2) mg/dL Calcium (8.5-10.1) mg/dL Magnesium (1.8-2.4) mg/dL Total Bilirubin (0.2-1.0) mg/dL AST (15-37) U/L ALT (12-78) U/L Alkaline Phosphatase (46-116) IU/L C-Reactive Protein (<=0.9) mg/dL Total Protein (6.4-8.2) g/dL Albumin (3.4-5.0) g/dL 05/30/17 05/31/17 05/31/17 Range/Units 21:13 07:08 07:08 WBC 11.3 H (4.0-10.2) K/uL RBC 3.91 L (4.33-5.41) M/uL Hgb 12.2 L (13.1-16.8) g/dL Hct 36.6 L (39.0-49.0) % MCV 93.6 (84.0-98.0) fL MCH 31.2 (28.2-33.3) pg MCHC 33.3 (31.7-36.0) g/dL RDW 14.0 (11.2-14.1) % Plt Count 135 L (150-350) K/uL Neut % (Auto) 80.5 H (45.0-80.0) % Lymph % (Auto) 11.8 (10.0-50.0) % Starke % (Auto) 7.4 (2.0-14.0) % Eos % (Auto) 0.0 (0.0-5.0) % Baso % (Auto) 0.3 (0.0-2.0) % Neut # (Auto) 9.09 H (1.40-7.00) K/uL Lymph # (Auto) 1.33 (0.50-3.50) K/uL Starke # (Auto) 0.84 (0.00-1.00) K/uL Eos # (Auto) 0.00 (0.00-0.50) K/uL Baso # (Auto) 0.03 (0.00-0.20) K/uL VBG pH (7.31-7.41) VBG pCO2 (41-51) mmHG VBG pO2 mmHG VBG HCO3 (23-28) mmol/L VBG Total CO2 mmol/L VBG O2 Saturation % VBG Base Excess ((-2)-3) mmol/L O2 Delivery Device Oxygen Flow Rate L/min Sodium 142 (136-145) mmol/L Potassium 3.8 (3.5-5.1) mmol/L Chloride 105 (98-107) mmol/L Carbon Dioxide 30.3 (21.0-32.0) mmol/L BUN 35 H (7-18) mg/dL Creatinine 1.32 H (0.51-1.17) mg/dL Est Cr Clr Drug Dosing 47.87 mL/min Estimated GFR (MDRD) 53 mL/min Glucose 135 H (74-106) mg/dL POC Glucose 344 H* (65-110) mg/dl Uric Acid 5.6 (2.6-7.2) mg/dL Calcium 8.7 (8.5-10.1) mg/dL Magnesium 2.0 (1.8-2.4) mg/dL Total Bilirubin 0.2 (0.2-1.0) mg/dL AST 28 (15-37) U/L ALT 40 (12-78) U/L Alkaline Phosphatase 65 (46-116) IU/L C-Reactive Protein < 0.1 (<=0.9) mg/dL Total Protein 6.4 (6.4-8.2) g/dL Albumin 2.8 L (3.4-5.0) g/dL 05/31/17 05/31/17 Range/Units 07:08 07:15 WBC (4.0-10.2) K/uL RBC (4.33-5.41) M/uL Hgb (13.1-16.8) g/dL Hct (39.0-49.0) % MCV (84.0-98.0) fL MCH (28.2-33.3) pg MCHC (31.7-36.0) g/dL RDW (11.2-14.1) % Plt Count (150-350) K/uL Neut % (Auto) (45.0-80.0) % Lymph % (Auto) (10.0-50.0) % Starke % (Auto) (2.0-14.0) % Eos % (Auto) (0.0-5.0) % Baso % (Auto) (0.0-2.0) % Neut # (Auto) (1.40-7.00) K/uL Lymph # (Auto) (0.50-3.50) K/uL Starke # (Auto) (0.00-1.00) K/uL Eos # (Auto) (0.00-0.50) K/uL Baso # (Auto) (0.00-0.20) K/uL VBG pH 7.40 (7.31-7.41) VBG pCO2 51 (41-51) mmHG VBG pO2 183 mmHG VBG HCO3 32 H (23-28) mmol/L VBG Total CO2 33 mmol/L VBG O2 Saturation 100 % VBG Base Excess 7 H ((-2)-3) mmol/L O2 Delivery Device Nasal cannula Oxygen Flow Rate L/min Sodium (136-145) mmol/L Potassium (3.5-5.1) mmol/L Chloride (98-107) mmol/L Carbon Dioxide (21.0-32.0) mmol/L BUN (7-18) mg/dL Creatinine (0.51-1.17) mg/dL Est Cr Clr Drug Dosing mL/min Estimated GFR (MDRD) mL/min Glucose (74-106) mg/dL POC Glucose 126 H (65-110) mg/dl Uric Acid (2.6-7.2) mg/dL Calcium (8.5-10.1) mg/dL Magnesium (1.8-2.4) mg/dL Total Bilirubin (0.2-1.0) mg/dL AST (15-37) U/L ALT (12-78) U/L Alkaline Phosphatase (46-116) IU/L C-Reactive Protein (<=0.9) mg/dL Total Protein (6.4-8.2) g/dL Albumin (3.4-5.0) g/dL Med Orders - Current: Current Medications Acetaminophen (Tylenol) 650 mg PO Q4H PRN PRN Reason: Pain (Mild 1-3)/fever Albuterol (Proventil Neb Soln) 2.5 mg NEB Q4HRRT PRN PRN Reason: Shortness of Breath Albuterol/Ipratropium (Duoneb 3.0-0.5 Mg/3 Ml) 3 ml NEB QIDRT [facility] Last Admin: 05/31/17 08:42 Dose: 3 ml Allopurinol (Zyloprim) 100 mg PO BID@ [facility] Last Admin: 05/31/17 08:44 Dose: 100 mg Aripiprazole (Abilify) 5 mg PO DAILY@190 [facility] Last Admin: 05/30/17 19:31 Dose: 5 mg Aspirin (Ecotrin) 325 mg PO DAILY [facility] Last Admin: 05/31/17 08:43 Dose: 325 mg Azithromycin (Zithromax) 500 mg PO DAILY [facility] Last Admin: 05/31/17 08:43 Dose: 500 mg Bisacodyl (Dulcolax) 5 mg PO DAILY PRN PRN Reason: Constipation Carvedilol (Coreg) 12.5 mg PO BID@0800,1900 [facility] Last Admin: 05/31/17 08:53 Dose: 12.5 mg Coenzyme Q10 (Coenzyme Q10) 100 mg PO DAILY [facility] Last Admin: 05/31/17 08:44 Dose: 100 mg Diltiazem HCl (Cardizem Cd) 120 mg PO DAILY [facility] Last Admin: 05/31/17 08:53 Dose: 120 mg Diltiazem HCl (Cardizem Cd) 180 mg PO DAILY [facility] Last Admin: 05/31/17 08:52 Dose: 180 mg Doxazosin Mesylate (Cardura) 8 mg PO DAILY@1900 [facility] Last Admin: 05/30/17 19:34 Dose: 8 mg Glipizide (Glucotrol) 10 mg PO BID@ [facility] Last Admin: 05/31/17 08:42 Dose: 10 mg Hydralazine HCl (Apresoline) 50 mg PO BID@ [facility] Last Admin: 05/31/17 08:45 Dose: 50 mg Hydrochlorothiazide (Hydrochlorothiazide) 25 mg PO DAILY [facility] Last Admin: 05/31/17 08:42 Dose: 25 mg Ceftriaxone Sodium 1 gm/ (Sodium Chloride) 100 mls @ 200 mls/hr IV Q24H [facility] Last Admin: 05/30/17 13:47 Dose: 200 mls/hr Insulin Human Regular (Humulin R) 0 unit SUBCUT QID@0730,1130,17,21 [facility] PRN Reason: Protocol Last Admin: 05/31/17 08:41 Dose: Not Given Lisinopril (Prinivil) 10 mg PO BID@ [facility] Last Admin: 05/31/17 08:43 Dose: 10 mg Lorazepam (Ativan) 0.25 mg PO DAILY PRN PRN Reason: Anxiety Last Admin: 05/28/17 19:44 Dose: 0.25 mg Omeprazole (Omeprazole) 20 mg PO BID@ [facility] Last Admin: 05/31/17 08:43 Dose: 20 mg Ondansetron HCl (Zofran) 4 mg IVPUSH Q6H PRN PRN Reason: Nausea/Vomiting Simvastatin (Zocor) 40 mg PO DAILY@1900 [facility] Last Admin: 05/30/17 19:35 Dose: 40 mg Sodium Chloride (Saline Flush) 10 ml FLUSH ASDIRECTED PRN PRN Reason: Keep Vein Open Last Admin: 05/30/17 14:41 Dose: 10 ml Sodium Chloride (Saline Flush) 10 ml FLUSH Q12HR [facility] Last Admin: 05/31/17 08:44 Dose: 10 ml Venlafaxine HCl (Effexor Xr) 75 mg PO DAILY [facility] Last Admin: 05/31/17 08:42 Dose: 75 mg Discontinued Medications Albuterol/Ipratropium (Duoneb 3.0-0.5 Mg/3 Ml) 3 ml NEB ONETIME ONE Stop: 05/27/17 09:19 Last Admin: 05/27/17 09:27 Dose: 3 ml Albuterol/Ipratropium (Duoneb 3.0-0.5 Mg/3 Ml) 3 ml NEB ONETIME ONE Stop: 05/27/17 09:50 Last Admin: 05/27/17 09:53 Dose: 3 ml Albuterol/Ipratropium (Duoneb 3.0-0.5 Mg/3 Ml) 3 ml NEB Q6HRRT [facility] Last Admin: 05/30/17 19:35 Dose: 3 ml Atenolol (Tenormin) 50 mg PO BID@08,19 [facility] Last Admin: 05/30/17 19:33 Dose: 50 mg Atenolol (Tenormin) 25 mg PO ONETIME ONE Stop: 05/28/17 17:48 Last Admin: 05/28/17 18:29 Dose: 25 mg Furosemide (Lasix) 20 mg IVPUSH ONETIME ONE Stop: 05/27/17 09:51 Last Admin: 05/27/17 10:00 Dose: 20 mg Furosemide (Lasix) 20 mg IVPUSH ONETIME ONE Stop: 05/29/17 18:45 Last Admin: 05/29/17 19:26 Dose: 20 mg Sodium Chloride (Normal Saline) 1,000 mls @ 200 mls/hr IV ONETIME ONE Stop: 05/27/17 15:01 Last Admin: 05/27/17 10:37 Dose: 200 mls/hr Azithromycin 500 mg/ Sodium (Chloride) 250 mls @ 250 mls/hr IV ONETIME ONE Stop: 05/27/17 13:07 Last Admin: 05/27/17 13:29 Dose: 250 mls/hr Ceftriaxone Sodium 1 gm/ (Sodium Chloride) 100 mls @ 200 mls/hr IV ONETIME ONE Stop: 05/27/17 12:33 Last Admin: 05/27/17 12:43 Dose: 200 mls/hr Azithromycin 500 mg/ Sodium (Chloride) 250 mls @ 250 mls/hr IV Q24H [facility] Last Admin: 05/30/17 14:41 Dose: 250 mls/hr Insulin Detemir (Levemir) 10 unit SUBCUT ONETIME ONE Stop: 05/30/17 21:46 Last Admin: 05/30/17 21:32 Dose: 10 units Insulin Human Regular (Humulin R) 6 unit SUBCUT ONETIME ONE PRN Reason: Protocol Stop: 05/27/17 10:01 Last Admin: 05/27/17 10:03 Dose: 6 unit Insulin Human Regular (Humulin R) 0 unit SUBCUT TIDAC KALPANA PRN Reason: Protocol Last Admin: 05/28/17 17:01 Dose: 4 unit Insulin Human Regular (Humulin R) 8 unit SUBCUT ONETIME ONE PRN Reason: Protocol Stop: 05/27/17 20:11 Last Admin: 05/27/17 21:43 Dose: 8 units Iopamidol (Isovue-370 (76%)) 100 ml IVPUSH ONETIME ONE Stop: 05/27/17 10:31 Last Admin: 05/27/17 10:30 Dose: 100 ml Labetalol HCl (Normodyne) 2.5 mg IVPUSH ONETIME ONE PRN Reason: Protocol Stop: 05/29/17 22:52 Last Admin: 05/29/17 23:37 Dose: 2.5 mg Lisinopril (Prinivil) 5 mg PO ONETIME ONE Stop: 05/28/17 17:47 Last Admin: 05/28/17 18:29 Dose: 5 mg Lisinopril (Prinivil) 10 mg PO ONETIME ONE Stop: 05/29/17 16:07 Last Admin: 05/29/17 16:27 Dose: 10 mg Methylprednisolone Sodium Succinate (Solu-Medrol) 125 mg IVPUSH ONETIME ONE Stop: 05/27/17 09:50 Last Admin: 05/27/17 09:53 Dose: 125 mg Methylprednisolone Sodium Succinate (Solu-Medrol) 125 mg IVPUSH ONETIME ONE Stop: 05/28/17 17:44 Last Admin: 05/28/17 18:29 Dose: 125 mg Methylprednisolone Sodium Succinate (Solu-Medrol) 125 mg IVPUSH ONETIME ONE Stop: 05/29/17 18:31 Last Admin: 05/29/17 19:26 Dose: 125 mg Metoprolol Tartrate (Lopressor) 50 mg PO ONETIME ONE Stop: 05/29/17 16:05 Last Admin: 05/29/17 16:26 Dose: 50 mg Ondansetron HCl (Zofran Odt) 4 mg PO Q6H PRN PRN Reason: Nausea/Vomiting *Q Meaningful Use (DIS) - VTE *Q VTE Criteria *Q: VTE Pharmacological Contraindications *Q: Thrombocytopenia - Stroke *Q Stroke Criteria *Q: - AMI *Q AMI Criteria *Q:
[2017-05-31] MEDS: Sodium Chloride 0.9% 10 ML Syringe FLUSH PRN (12:10)
[2017-05-31] MEDS: cefTRIAXone 1 GM in Sodium Chloride 0.9% 100 ML IV SCH (12:10)
== END 2017-05-31 13:15 | disposition home or self-care (01) | DRG 190 ==
LOC: LL.ED 08:48 → UNDOADMIN 13:44 → LL.MS 13:44 → UNDODISIN 05-31 13:15
PROVIDERS: ADMIT Emergency Medicine; ATTEND Family Medicine
DX: J44.0 Chronic obstructive pulmonary disease with (acute) lower respiratory infection (principal); J18.9 Pneumonia, unspecified organism; J44.1 Chronic obstructive pulmonary disease with (acute) exacerbation; F17.210 Nicotine dependence, cigarettes, uncomplicated; I12.9 Hypertensive chronic kidney disease with stage 1 through stage 4 chronic kidney disease, or unspecified chronic kidney disease; E11.22 Type 2 diabetes mellitus with diabetic chronic kidney disease; E11.65 Type 2 diabetes mellitus with hyperglycemia; N18.9 Chronic kidney disease, unspecified; Z79.84 Long term (current) use of oral hypoglycemic drugs; E78.00 Pure hypercholesterolemia, unspecified; I73.9 Peripheral vascular disease, unspecified; K21.9 Gastro-esophageal reflux disease without esophagitis; F32.9 Major depressive disorder, single episode, unspecified; H35.30 Unspecified macular degeneration; H04.129 Dry eye syndrome of unspecified lacrimal gland; F60.9 Personality disorder, unspecified; D69.6 Thrombocytopenia, unspecified; R91.8 Other nonspecific abnormal finding of lung field; Z79.82 Long term (current) use of aspirin; Z79.899 Other long term (current) drug therapy
CPT/HCPCS: 71020; 71275; 93005; 96361; 96365; 96367; 94640 ×2; 99285; 96372; 96375; 85025; 85379; 36415; 82962; 80053; 82550; 82553; 84484; 83880; 83036; Q9967 ×2; J0456; J0696; J2930; J7030; J7050 ×3; J1940; J1815; 81001; 82306; 82803; 83735; 84550; 86140; 97110-GP; 97116-GP; 97161-GP; 97165-GO; A9270-GY